=== PATIENT | female | born 1955 | race Caucasian/White ===

== ENCOUNTER → 2017-08-09 | Outpatient (CLI) | payer OTHER ==
[~2017-08-09] MED LIST: CIPR500 PO; ESTROGEN PATCH; HYDACE5 PO; LEVFLO500 PO; METR500 PO; NAPR550 PO; OXYACE5T PO; PROM25 PO; Percocet 5-3251 EACH PO; Zofran Odt4 MG SL
[2017-08-12 10:48] LABS: HPV Genotype 16 Not Detected (NOTDET); HPV Genotype 18 Not Detected (NOTDET); HPV High Risk Other Not Detected (NOTDET)
== END | disposition home or self-care (01) ==
LOC: OLS 13:19
PROVIDERS: Nurse Practitioner Women's Health
DX: Z12.4 Encounter for screening for malignant neoplasm of cervix (principal)
CPT/HCPCS: 87624; G0123

== ENCOUNTER → 2019-11-08 | Outpatient (CLI) | payer OTHER ==
[2019-11-08 11:51] LABS: BASOPHILS ABSOLUTE AUTO 0.08 K/mm3 (0.00-0.23); BASOPHILS PERCENT AUTO 1 % (0-2); EOSINOPHILS PERCENT AUTO 3 % (0-6); Hematocrit 47.4 % (33.0-51.0); Hemoglobin 16.1 g/dL (11.5-16.0); IMMATURE GRAN ABSOLUTE AUTO 0.03 K/mm3 (0.00-0.10); IMMATURE GRAN PERCENT AUTO 0 % (0-1); LYMPHOCYTES ABSOLUTE AUTO 1.54 K/mm3 (0.84-5.20); LYMPHOCYTES PERCENT AUTO 14 % (21-46); MONOCYTES ABSOLUTE AUTO 0.48 K/mm3 (0.16-1.47); MONOCYTES PERCENT AUTO 4 % (4-13); Mean Corpuscular HGB 32.3 pg (26.0-34.0); Mean Corpuscular Volume 95 fL (80-100); Mean Platelet Volume 9.6 fL (9.1-12.4); NEUTROPHILS ABSOLUTE AUTO 8.84 K/mm3 (1.96-9.15); NEUTROPHILS PERCENT AUTO 78 % (41-73); Platelet Count 276 K/mm3 (150-400); RDW Coefficient Variation 13.4 % (11.7-14.2); RDW Standard Deviation 46.7 fL (35.1-46.3); Red Blood Cell Count 4.99 M/mm3 (3.80-5.20); White Blood Cell Count 11.27 K/mm3 (4.00-11.30)
[2019-11-08 12:10] LABS: Alanine Aminotransfer (ALT/SGP 30 U/L (12-78); Albumin, Blood 4.3 g/dL (3.4-5.0); Albumin/Globulin Ratio 1.1 (0.8-1.8); Alk Phos 103 U/L (40-126); Anion Gap 12 mmol/L (6-16); Aspartate Aminotrans (AST/SGOT 25 U/L (12-37); Bilirubin, Total 0.2 mg/dL (0.1-1.0); Blood Urea Nitrogen 9 mg/dL (8-24); Bun/Creatinine Ratio 12.9 (12.0-20.0); CO2, Blood 26 mmol/L (21-32); Calcium, Blood 9.6 mg/dL (8.5-10.1); Chloride, Blood 105 mmol/L (98-108); Globulin, Blood 3.8 g/dL (2.2-4.0); Glomerular Filtration Rate >60 (60-); Glucose, Blood 114 mg/dL (70-99); Potassium, Blood 4.2 mmol/L (3.5-5.5); Sodium, Blood 143 mmol/L (136-145); Total Protein, Blood 8.1 g/dL (6.4-8.2)
== END | disposition home or self-care (01) ==
LOC: LAB EV 11:44 → LAB SHORT 11:44
PROVIDERS: General Practice
DX: R10.11 Right upper quadrant pain (principal)
CPT/HCPCS: 80053; 83690; 85025; 87086

== ENCOUNTER 2020-11-16 21:34 | Inpatient (IN) | payer OTHER ==
[~2020-11-16] VITALS: Ht 162.6 cm; Wt 54.2 kg
[2020-11-16] MEDS ORDERED: ASPI81CH PO (22:07)
[2020-11-16] MEDS ORDERED: BUDESONIDE EC3 M5 PO (22:07)
[2020-11-16] MEDS ORDERED: RALOXIFENE HCL PO (22:07)
[2020-11-16 23:47] LABS: BASOPHILS ABSOLUTE AUTO 0.09 K/mm3 (0.00-0.23); BASOPHILS PERCENT AUTO 1 % (0-2); LYMPHOCYTES ABSOLUTE AUTO 0.84 K/mm3 (0.84-5.20); LYMPHOCYTES PERCENT AUTO 4 % (21-46); MONOCYTES ABSOLUTE AUTO 1.15 K/mm3 (0.16-1.47); MONOCYTES PERCENT AUTO 6 % (4-13); Mean Corpuscular HGB 32.1 pg (26.0-34.0); Mean Corpuscular HGB Conc 34.9 g/dL (31.5-36.5); Mean Corpuscular Volume 92 fL (80-100); Mean Platelet Volume 9.5 fL (9.1-12.4); Platelet Count 262 K/mm3 (150-400); RDW Coefficient Variation 12.9 % (11.7-14.2); RDW Standard Deviation 43.8 fL (35.1-46.3); Red Blood Cell Count 4.68 M/mm3 (3.80-5.20); White Blood Cell Count 19.94 K/mm3 (4.00-11.30)
[2020-11-16 23:48] LABS: EOSINOPHILS PERCENT AUTO 0 % (0-6); IMMATURE GRAN ABSOLUTE AUTO 0.13 K/mm3 (0.00-0.10); IMMATURE GRAN PERCENT AUTO 1 % (0-1); NEUTROPHILS ABSOLUTE AUTO 17.73 K/mm3 (1.96-9.15); NEUTROPHILS PERCENT AUTO 89 % (41-73)
[2020-11-17 00:05] LABS: Albumin, Blood 2.8 g/dL (3.4-5.0); Albumin/Globulin Ratio 0.7 (0.8-1.8); Bilirubin, Total 0.8 mg/dL (0.1-1.0); Bun/Creatinine Ratio 31.9 (12.0-20.0); Calcium, Blood 8.9 mg/dL (8.5-10.1); Creatinine, Blood 1.13 mg/dL (0.40-1.00); Globulin, Blood 4.1 g/dL (2.2-4.0); Potassium, Blood 3.3 mmol/L (3.5-5.5); Total Protein, Blood 6.9 g/dL (6.4-8.2)
--- NOTE | 2020-11-17 03:57 | NUR ---
PT ARRIVED TO FLOOR FROM ER FOR APPY. PT A/O, VSS. PT REP ABD PAIN X3 DAYS W/N/V. ABD MILDLY DISTENDED, PT REP NEAR BASELINE, REP PAIN W/PALP, MORESO TO R SIDE OF ABD. PT REP PAIN CYN, DENIES N/V. PT ORIENTED TO ROOM/CALL LIGHT, AND NPO STATUS. IVF RUNNING PER ORDERS. WILL MONITOR AND TX PER ORDERS.
--- NOTE | 2020-11-17 04:08 | NUR ---
PT CAME TO SURGICAL FLOOR FROM THE ER. HAD CONSTIPATION FOR 3 DAYS AND WAS UNABLE TO URINATE. PT WAS ABLE TO URINATE 300 ML FOR ME. SHE ALSO HAD SOME NAUSEA AND VOMITING. CT SHOWED A PERFORATED APPENDIX. PT IS A 1 PPD SMOKER AND DENIES SOB. HX OF OVARIES AND TUBES REMOVAL.
[2020-11-17 04:56] LABS: SARS-Cov-2 (COVID-19) PCR, MMC NEGATIVE (NEGATIVE)
--- NOTE | 2020-11-17 05:41 | NUR ---
PT NEW ADMIT THIS SHIFT FOR APPY. PT VSS, PAIN MGD PER EMAR W/REP RELIEF. PT HAS BEEN NPO SINCE ARRIVING TO FLOOR; IVF CONT PER ORDERS. AWAITING SURGERY PLANNING.
[2020-11-17 11:13] LABS: International Normalized Ratio 0.95; Prothrombin Time Results 10.3 Sec (9.7-11.5)
--- NOTE | 2020-11-17 14:45 | NUR ---
RETURNED FROM CT URESIL DRAIN IN PLACE TO RLQ W/ ELIZABETH AMT AILYN KENDALL. IVF RESTARTED, PT DENIES INCREASE IN PAIN & HAS NO COMPLAINTS AT THIS TIME.
[2020-11-17 17:54] LABS: Hematocrit 39.8 % (33.0-51.0); Hemoglobin 13.7 g/dL (11.5-16.0); Mean Corpuscular HGB 32.1 pg (26.0-34.0); Mean Corpuscular HGB Conc 34.4 g/dL (31.5-36.5); Mean Corpuscular Volume 93 fL (80-100); Mean Platelet Volume 9.6 fL (9.1-12.4); Platelet Count 258 K/mm3 (150-400); RDW Coefficient Variation 13.1 % (11.7-14.2); RDW Standard Deviation 44.9 fL (35.1-46.3); Red Blood Cell Count 4.27 M/mm3 (3.80-5.20); White Blood Cell Count 18.88 K/mm3 (4.00-11.30)
[2020-11-17 18:13] LABS: BAND PERCENT MAN 23 % (0-8); BASOPHILS PERCENT MAN 0 % (0-2); EOSINOPHILS PERCENT MAN 0 % (0-6); LYMPHOCYTES ABSOLUTE MAN 1.13 K/mm3 (0.84-5.20); LYMPHOCYTES PERCENT MAN 6 % (21-46); MONOCYTES ABSOLUTE MAN 0.75 K/mm3 (0.16-1.47); MONOCYTES PERCENT MAN 4 % (4-13); NEUTROPHILS ABSOLUTE MAN 16.99 K/mm3 (1.96-9.15); SEG NEUTROPHILS PERCENT MAN 67 % (41-73); TOTAL CELLS COUNTED 100
[2020-11-17 18:15] LABS: Anion Gap 11 mmol/L (6-16); Blood Urea Nitrogen 25 mg/dL (8-24); Bun/Creatinine Ratio 27.3 (12.0-20.0); CO2, Blood 21 mmol/L (21-32); Calcium, Blood 8.8 mg/dL (8.5-10.1); Chloride, Blood 102 mmol/L (98-108); Creatinine, Blood 0.92 mg/dL (0.40-1.00); Glomerular Filtration Rate >60 (60-); Glucose, Blood 93 mg/dL (70-99); Magnesium, Blood 2.7 mg/dL (1.6-2.4); Phosphorus, Blood 2.2 mg/dL (2.5-4.9); Potassium, Blood 3.3 mmol/L (3.5-5.5); Sodium, Blood 134 mmol/L (136-145); Troponin I <0.015 ng/mL (0.000-0.040)
[2020-11-17 18:40] LABS: CHOL/HDL RATIO 3.6; Cholesterol 129 mg/dL (50-200); HDL Cholesterol 36 mg/dL (>39); LDL/HDL RATIO 1.8; Low Density Lipoprotein Chol 66 mg/dL (0-110); Triglycerides 136 mg/dL (30-160); Very Low Density Lipoprot Chol 27 mg/dL (6-32)
[2020-11-17 19:02] LABS: Free Thyroxine 1.38 ng/dL (0.70-1.60)
[2020-11-17 19:06] LABS: Thyroid Stimulating Hormone 2.37 uIU/mL (0.360-4.800)
--- NOTE | 2020-11-17 19:22 | NUR ---
TRANSFER TO PCU AT 1645, PT REPORTS FEELING INDIGESTION/PRESSURE, HAVING A SHARP HEADACHE, A FLUTTERING IN HER CHEST & NOT FEELING WELL. VITAL CHECK REVEALS HR FLUCTUATING FROM 80's TO 170's. UPON LISTENING TO HR & FEELING PULSES, IT WAS CLEARLY IRREGULAR. 1700- DISCUSSED NEW FINDINGS W/ DR CATHERINE. NEW ORDERS RECEIVED. 1708- EKG COMPLETE. AFIB W/ RVR IN 170'S. PT REPORTS NO CHANGE IN SYMPTOMS. 1715- DR CATHERINE CALLED. NEW ORDERS RECEIVED. 1730- HOSPITALIST CONSULT COMPLETED. NEW ORDERS RECEIVED. 1750- IV METOPROLOL GIVEN NOW THAT TELE IS ON. TELE REPORTS AFIB W/ RVR IN 180'S. DR DAVENPORT IN TELE ROOM DURING METOPROLOL PUSH. REPORTS MINIMAL RESPONSE. PT REPORTS FEELING LESS CHEST PRESSURE AND NO MORE FLUTTERING. TELE REPORTS AFIB W/ RVR IN 150'S. CHEST X-RAY & LAB DRAW COMPLETED. 1800- RESIDENT TO PT's ROOM FOR ASSESSMENT. 1830- HOSPITALIST TO PT's ROOM FOR ASSESSMENT. 1840- PCU TRANSFER ORDERS RECEIVED.
--- NOTE | 2020-11-17 20:03 | NUR ---
REPORT CALLED TO PERMASTONE APPLICATORCONCHA LARIOS
[2020-11-18 04:38] LABS: BASOPHILS ABSOLUTE AUTO 0.05 K/mm3 (0.00-0.23); BASOPHILS PERCENT AUTO 0 % (0-2); Hematocrit 34.6 % (33.0-51.0); Hemoglobin 11.6 g/dL (11.5-16.0); LYMPHOCYTES PERCENT AUTO 5 % (21-46); MONOCYTES PERCENT AUTO 8 % (4-13); Mean Corpuscular HGB 31.4 pg (26.0-34.0); Mean Corpuscular HGB Conc 33.5 g/dL (31.5-36.5); Mean Corpuscular Volume 94 fL (80-100); Mean Platelet Volume 9.9 fL (9.1-12.4); Platelet Count 234 K/mm3 (150-400); RDW Coefficient Variation 13.1 % (11.7-14.2); RDW Standard Deviation 45.1 fL (35.1-46.3); White Blood Cell Count 14.58 K/mm3 (4.00-11.30)
--- NOTE | 2020-11-18 04:38 | NUR ---
OVEN BAKER SUMMARY PT ARRIVED TO UNIT W A HR OF AFIB 150'S, CARDIZEM GTT STARTED WELL HEPARIN. PT HAS HAD SOFT BP'S THIS SHIFT W SBP LOW 88/60. PT CONVERTED TO NSR SHORTLY AFTER MIDNIGHT SO PROVIDER WAS CALLED AND PT STARTED ON LOPRESSOR. PT HAS MAINTAINED NSR IN 60-70'S FOR THE REST OF THE NIGHT. THE PT DID REQUIRE 4L O2 TO MAINTAIN O2 SATS >91% FOR FIRST HALF OF THE NIGHT BUT WAS ABLE TO RETURN TO RM AIR BY END OF THE SHIFT. PT HAS HAD SEVERAL LIQUID STOOLS THIS SHIFT W MINIMAL PELLET LIKE CONTENTS. DRAIN MANAGED TO MAINTAIN SUCTION AND IS PRODUCING SMALL AMOUNT OF GOODEN THICK DRAINAGE. NO FEVERS THIS SHIFT. PT HAS HAD MINIMAL URINE OUTPUT DESPITE LARGE AMOUNTS OF IV FLUIDS, BLADDER SCAN SHOWED <100ML URINE. VS STABLE AT THIS TIME, WCTM.
[2020-11-18 04:39] LABS: EOSINOPHILS ABSOLUTE AUTO 0.05 K/mm3 (0.00-0.68); EOSINOPHILS PERCENT AUTO 0 % (0-6); IMMATURE GRAN ABSOLUTE AUTO 0.06 K/mm3 (0.00-0.10); IMMATURE GRAN PERCENT AUTO 0 % (0-1); NEUTROPHILS ABSOLUTE AUTO 12.62 K/mm3 (1.96-9.15); NEUTROPHILS PERCENT AUTO 87 % (41-73)
[2020-11-18 05:07] LABS: Anion Gap 6 mmol/L (6-16); Blood Urea Nitrogen 20 mg/dL (8-24); Bun/Creatinine Ratio 25.5 (12.0-20.0); CO2, Blood 23 mmol/L (21-32); Calcium, Blood 7.6 mg/dL (8.5-10.1); Chloride, Blood 104 mmol/L (98-108); Creatinine, Blood 0.79 mg/dL (0.40-1.00); Glomerular Filtration Rate >60 (60-); Glucose, Blood 111 mg/dL (70-99); Potassium, Blood 3.7 mmol/L (3.5-5.5); Sodium, Blood 133 mmol/L (136-145)
--- NOTE | 2020-11-18 18:00 | NUR ---
END OF SHIFT SUMMARY: DIRECTOR OF PRODUCT MARKETING WORKING WITH SAILAJA FORRESTER RN. ASSUMED CARE FOR PATIENT AROUND 0700. PATIENT IS ALERT AND ORIENTED X4. PATIENT HAS BEEN SINUS RHYTHM. SHE HAS BEEN >93% ON 2L NC. SHE HAS A URESIL SLIM-CLOSE SUCTION DRAIN TO HER RIGHT LOWER QUADRANT THAT IS DRAINING GOODEN COLORED DRAINAGE. PATIENT HAS BEEN HAVING ABDOMINAL CRAMPING AND HAS BEEN MEDICATED PER EMAR ORDERS. PATIENT HAS BEEN GETTING UP TO USE THE RESTROOM WITH SBA. SHE DENIES ANY NEW SYMPTOMS OR COMPLAINTS DURING THIS SHIFT. SHE DENIES CHEST PAIN AND HEART PALPITATIONS. SHE IS CURRENTLY RESTING IN BED. BED IS IN THE LOWEST POSITION AND CALL LIGHT IS WITHIN REACH.
--- NOTE | 2020-11-19 04:02 | NUR ---
CHINCHILLA FARMER SUMMARY PT HAVING INCREASED SOB W CRACKLES IN BILAT BASES SO PROVIDER WAS CONTACTED AND FLUIDS WERE DC'D. PT HAS REMAINED IN NSR IN 70-80'S ALL SHIFT. PT AFEBRILE AND BP STABLE THIS SHIFT. SUCTION DRAIN CONTINUES TO PRODUCE SMALL AMOUNTS OF GOODEN THICK DISCHARGE. PT HAS HAD MULTPLE SMALL, GREEN, LIQUID BOWEL MOVMENTS THIS SHIFT. PT HAS BEEN AMBULATING WELL WITH MINIMAL PAIN. O2 SATS >92% ON 2L VIA NC, PT DOES DESATURATE TO MID 80'S WHENEVER OFF OF O2. PT DENIED ANY CP OR PALPATIONS THIS SHIFT. VSS, WCTM.
--- NOTE | 2020-11-19 10:44 | NUR ---
ADMIT: 11/17/20 DISCHARGE: DX: Abdominal Pain CC: [email or web address] LENO CALL: RESIDENCE: home CAREGIVER: Dank Gomez, Spouse / Partner, [phone] DX: microscopic colitis, hyperlipidemia, see list DME: none CCM: none HOME HEALTH: none SUMMARY: Admit: 11/17/20 11/19/20- per chart review, pt is still on IV antibotics and clear liquid diet. Pt had Afib with RVR last night. Dr. Araiza and Dr. De La Cruz are also seeing pt and providing care. Pt was cleared and moved to medical floor. -silvina
--- NOTE | 2020-11-19 16:31 | NUR ---
CARDIZEM DRIP INCREASED TO 20ML/HR PER DR. TAVERAS.
--- NOTE | 2020-11-19 17:10 | NUR ---
THIS RN CALLED DR TAVERAS TO CLARIFY ORDERS FOR AMIODARONE AND CARDIZEM IV. ORDERS RECEIVED TO DC IV AMIODARONE AND CONTINUE CARDIZEM DRIP AT [address] TAVERAS.
--- NOTE | 2020-11-19 17:14 | NUR ---
Echocardiogram completed.
--- NOTE | 2020-11-19 17:44 | NUR ---
SHIFT SUMMARY; ASSUMED CARE AT 0700, REPORT FROM CONCHA REYES. A/A/OX4 THROUGHOUT SHIFT. AT APPROX 0800 RHYTHYM CHANGE TO AFIB WITH RATE 120'S, MESSAGE LEFT FOR DR. MOODY. ORDERS GIVEN FOR LOPRESSOR IV PUSH BY DR. MOODY VIA PHONE TO CONCHA DANIEL. PO LOPRESSOR ORDER CHANGED. MEDICATED PER ORDERS. DENIES CHEST PAIN OR SOB. DR. STEINBERG TO BEDSIDE MID MORNING. REMAINS IN A FIB WITH RATE 100-120. SECOND DOSE LOPRESSOR GIVEN PER ORDERS. UP TO BEDSIDE COMMODE SEVERAL TIMES WITH LOOSE GREEN STOOL. URISEL IN PLACE DRAINIG BROWN LIQUID. DRESSING CLEAN DRY AND INTACT. CARDIOLOGY CONSULTED IN AFTERNOON FOR RATE CONTROL. CARDIZEM BOLUS, DRIP AND HEPARIN ORDERED BY DR. TAVERAS. MEDICATED PER ORDERS. CONVERTED TO SINUS RHYTHYM. CURRENT CARDIZEM DRIP AT 20ML/HR, WILL CONTINUE WITH CURRENT RATE PER DR. TAVERAS. REPOSITIONS SELF IN BED NEEDED. WILL CONTINUE TO TREAT AND MONITOR UNTIL CHANGE OF SHIFT.
--- NOTE | 2020-11-19 21:35 | NUR ---
Stopped dilTiazam gtt at 2115 per MD Rankin.
--- NOTE | 2020-11-20 07:59 | NUR ---
UPDATE PHARMACY NOTIFIED HEPARIN DOSE NOT ADJUSTED WITH LAST HEPARIN INFUSION DOSE ADJUSTMENT. LAB TO BE NOTIFIED AND ADJUSTMENTS TO BE MADE PER PHARMACIST.
[2020-11-20 08:11] LABS: BASOPHILS ABSOLUTE AUTO 0.07 K/mm3 (0.00-0.23); BASOPHILS PERCENT AUTO 0 % (0-2); EOSINOPHILS ABSOLUTE AUTO 0.25 K/mm3 (0.00-0.68); EOSINOPHILS PERCENT AUTO 1 % (0-6); Hematocrit 32.4 % (33.0-51.0); Hemoglobin 11.1 g/dL (11.5-16.0); IMMATURE GRAN ABSOLUTE AUTO 0.27 K/mm3 (0.00-0.10); IMMATURE GRAN PERCENT AUTO 2 % (0-1); LYMPHOCYTES ABSOLUTE AUTO 1.52 K/mm3 (0.84-5.20); LYMPHOCYTES PERCENT AUTO 9 % (21-46); MONOCYTES ABSOLUTE AUTO 1.47 K/mm3 (0.16-1.47); MONOCYTES PERCENT AUTO 8 % (4-13); Mean Corpuscular HGB 32.4 pg (26.0-34.0); Mean Corpuscular HGB Conc 34.3 g/dL (31.5-36.5); Mean Corpuscular Volume 95 fL (80-100); Mean Platelet Volume 9.3 fL (9.1-12.4); NEUTROPHILS ABSOLUTE AUTO 14.27 K/mm3 (1.96-9.15); NEUTROPHILS PERCENT AUTO 80 % (41-73); Platelet Count 301 K/mm3 (150-400); RDW Coefficient Variation 13.4 % (11.7-14.2); RDW Standard Deviation 46.3 fL (35.1-46.3); Red Blood Cell Count 3.43 M/mm3 (3.80-5.20); White Blood Cell Count 17.85 K/mm3 (4.00-11.30)
[2020-11-20 08:25] LABS: Anion Gap 11 mmol/L (6-16); Blood Urea Nitrogen 10 mg/dL (8-24); CO2, Blood 21 mmol/L (21-32); Calcium, Blood 8.1 mg/dL (8.5-10.1); Chloride, Blood 105 mmol/L (98-108); Creatinine, Blood 0.63 mg/dL (0.40-1.00); Glomerular Filtration Rate >60 (60-); Glucose, Blood 69 mg/dL (70-99); Potassium, Blood 3.3 mmol/L (3.5-5.5); Sodium, Blood 137 mmol/L (136-145)
--- NOTE | 2020-11-20 11:31 | NUR ---
UPDATE CARDIOLOGY AT BEDSIDE. ORDERS FOR PROCEDURAL MEDICATIONS ORDERED PER PHYSICIAN. ORDERS PROVIDED D/T PT LOW BLOOD SUGAR AND NPO STATE. SEE EMAR. PT NOT SYMPTOMATIC AT THIS TIME. EKG DONE PRIOR TO SOTALOL ADMINISTRATION D/T NO EKG DONE DURING NOC. PROFESSIONAL BUILDER CONFIRMED EKG STABLE. SOTALOL GIVEN THIS AM. WILL CONTINUE TO MONITOR .
--- NOTE | 2020-11-20 18:07 | NUR ---
SHIFT SUMMARY PT ALERT AND ORIENTED X 4. HR STABLE. BP STABLE. NO CP OR PRESSURE REPORTED. ACCORIDON DRAIN IN PLACE. SITE WNL. PT SBA TO COMMODE. OXYGEN SATURATION MAINTAINED ABOVE 92% ON 3L OF OXYGEN VIA NC. CALLI DONE AT BEDSIDE THIS AFTERNOON. SEE HC FLOW SHEET AND EMAR. PT TOLERATED WELL. VS REMAINED STABLE T/O PROCEDURE. CONSENT FORM SIGNED PRIOR TO START OF PROCEDURE. TESTING AND REGULATING TECHNICIANERIC RN, FURNITURE SALES ASSOCIATE AND SENIOR SECURITY ENGINEER AT BEDSIDE FOR PROCEDURE. MEDICATIONS DOCUMENTED IN [facility] FLOW SHEET, SEE CHART. EKG DONE THIS AM. WILL CONINUE TO MONITOR UNTIL REPORT GIVEN TO NIGHTSHIFT RN.
--- NOTE | 2020-11-20 18:45 | NUR ---
Update 11/20/20: Per chart review this AM with Dr. Bangura, pt. will likely remain hospitalized throughout the weekend. No discharge plan in place at this time.
--- NOTE | 2020-11-21 06:29 | NUR ---
PATIENT IS ALERT AND ORIENTATED, ABLE TO MAKE NEEDS KNOWN, HAD MULTIPLE BEDDING CHANGES AND BED BATHS R/T INCONTINENCE OF GREEN LIQUID STOOLS, NOTED EXCORIATION AND REDNESS OF BUTTOCKS FOR INCONTINECE. DISCUSS WITH PATIENT RECTAL TUBE, PATIENT AGREED, REVIEWED WITH INCOME TAX CONSULTANT THAT RECTAL TUBE WOULD BE BENEFICAL, INSERTED AROUND 0300 THIS MORNING, PATENT WITH GOOD OUTPUT. LEAKAGE NOTED AROUND TUBE ONE TIME PATIENT WAS PUSHING OUT FECES THROUGH TUBE, EDUCATION WAS GIVEN, PATIENT WAS CLEANED AND IS COMFORTABLY RESTING IN BED.
[2020-11-21 09:01] LABS: BASOPHILS ABSOLUTE AUTO 0.14 K/mm3 (0.00-0.23); BASOPHILS PERCENT AUTO 1 % (0-2); EOSINOPHILS ABSOLUTE AUTO 0.34 K/mm3 (0.00-0.68); EOSINOPHILS PERCENT AUTO 2 % (0-6); Hematocrit 34.6 % (33.0-51.0); Hemoglobin 11.5 g/dL (11.5-16.0); IMMATURE GRAN ABSOLUTE AUTO 0.63 K/mm3 (0.00-0.10); IMMATURE GRAN PERCENT AUTO 3 % (0-1); LYMPHOCYTES ABSOLUTE AUTO 2.14 K/mm3 (0.84-5.20); LYMPHOCYTES PERCENT AUTO 11 % (21-46); MONOCYTES ABSOLUTE AUTO 1.85 K/mm3 (0.16-1.47); MONOCYTES PERCENT AUTO 9 % (4-13); Mean Corpuscular HGB 31.9 pg (26.0-34.0); Mean Corpuscular HGB Conc 33.2 g/dL (31.5-36.5); Mean Corpuscular Volume 96 fL (80-100); Mean Platelet Volume 9.8 fL (9.1-12.4); NEUTROPHILS ABSOLUTE AUTO 14.57 K/mm3 (1.96-9.15); NEUTROPHILS PERCENT AUTO 74 % (41-73); Platelet Count 375 K/mm3 (150-400); RDW Coefficient Variation 13.4 % (11.7-14.2); RDW Standard Deviation 47.9 fL (35.1-46.3); White Blood Cell Count 19.67 K/mm3 (4.00-11.30)
[2020-11-21 09:09] LABS: Anion Gap 11 mmol/L (6-16); Blood Urea Nitrogen 7 mg/dL (8-24); Bun/Creatinine Ratio 10.6 (12.0-20.0); CO2, Blood 20 mmol/L (21-32); Calcium, Blood 8.3 mg/dL (8.5-10.1); Chloride, Blood 109 mmol/L (98-108); Creatinine, Blood 0.66 mg/dL (0.40-1.00); Glomerular Filtration Rate >60 (60-); Glucose, Blood 94 mg/dL (70-99); Potassium, Blood 3.1 mmol/L (3.5-5.5); Sodium, Blood 140 mmol/L (136-145)
--- NOTE | 2020-11-21 09:12 | NUR ---
UPDATE PHYSICIAN NOTIFIED OF PT'S FREQUENT LOOSE STOOL. ORDERS FOR STOOL SAMPLE TO BE PUT IN BY PHYSICIAN. PROBIOTIC SUPPLEMENT TO BE PUT IN BY PHYSICIAN. WILL CONTINUE TO MONITOR.
[2020-11-21 12:34] LABS: C DIFFICILE DNA NEGATIVE (Negative)
--- NOTE | 2020-11-21 13:55 | NUR ---
UPDATE PHYSICIAN NOTIFIED OF PT'S LOW K+ LEVELS. ORDERS PROVIDED PER PHYSICIAN.
--- NOTE | 2020-11-21 16:15 | NUR ---
UPDATE PT REQUESTING TO ADVANCE TO FULL LIQUID DIET. INSTRUCTED BY PHYSICIAN TO ADVANCE PT'S DIET TO FULL LIQUID SLOWLY. SEE EHR.
--- NOTE | 2020-11-21 17:40 | NUR ---
SHIFT SUMMARY PT ALERT AND ORIENTED X 4. HR STABLE. BP STABLE. NO CHEST PAIN. PT ABLE TO TURN SELF IN BED NEEDED. RECTAL TUBE IN PLACE, DRAINING LIQUID BROWN STOOL. PT SBA TO COMMODE. HOSPITALIST AND SURGEON AT BEDSIDE WITH PT THIS AFTERNOON. ORDERS PROVIDED, SEE EHR. PT PROVIDED WITH INCENTIVE SPIROMETER AT BEDSIDE. PT REPORTS PAIN IN ABD, MEDICATED PER EMAR. PT REPORTS RELIEF. OXYGEN SATURATION MAINTAINED ABOVE 92% ON RA-2.5 L OF OXYGEN VIA NC. PHYSICIAN NOTIFIED OF PT'S LOW K+ LEVEL DURING SHIFT, SEE NOTE AND EHR. PT ABLE TO ADVACE DIET TO FULL LIQUID PER SURGEON. WILL CONTINUE TO MONITOR UNTIL REPORT GIVEN TO NIGHTSHIFT RN.
--- NOTE | 2020-11-22 01:04 | NUR ---
PATIENT IS ALERT AND ORIENTATED, ABLE TO MAKE NEEDS KNOWN, THIS LN TOOK OVER CARE AT 1845, REMOVED LAC, RAC IV(S), NEW INSERTED POWERGLIDE PALOMO IS INFUSING WITH NO S/SX OF INFLITRATION, RECTAL TUBE WAS DEFLATED AND ASSESS WITH NO S/SX OF ULCERATION, LEAKING NOTED R/T PATIENT IS WEARING A BRIEF AND SITTING ON TUBE. EDUCATION WAS PROVIDED TO GRAB HOOKER AND PATIENT. PATIENT HAD A BATH AND COMPLETE BED CHANGE, COMPLAINS OF EXTREME PAIN STOMACH ON FIRE, DILAUDID 1MG IVP GIVEN PATIENT REPORTS HELPS AND IS TOLERABLE. HEPARIN GTT IS CURRENTLY RUNNING AT 24U/KG/HR AND MONITORING LABS. WILL CONTINUE TO MONITOR PATIENT.
[2020-11-22 05:10] LABS: Hematocrit 32.4 % (33.0-51.0); Mean Corpuscular HGB 31.6 pg (26.0-34.0); Mean Corpuscular Volume 93 fL (80-100); Mean Platelet Volume 9.1 fL (9.1-12.4); NRBC ABSOLUTE 0.02 K/mm3 (0.00-0.02); NRBC Auto 0.1 /100 WBC (0.0-0.2); Platelet Count 436 K/mm3 (150-400); RDW Coefficient Variation 13.3 % (11.7-14.2); RDW Standard Deviation 45.6 fL (35.1-46.3); Red Blood Cell Count 3.48 M/mm3 (3.80-5.20)
[2020-11-22 05:26] LABS: Alanine Aminotransfer (ALT/SGP 16 U/L (12-78); Albumin, Blood 1.8 g/dL (3.4-5.0); Albumin/Globulin Ratio 0.4 (0.8-1.8); Alk Phos 77 U/L (50-136); Anion Gap 9 mmol/L (6-16); Aspartate Aminotrans (AST/SGOT 16 U/L (12-37); Bilirubin, Total 0.4 mg/dL (0.1-1.0); Blood Urea Nitrogen 5 mg/dL (8-24); Bun/Creatinine Ratio 6.9 (12.0-20.0); CO2, Blood 22 mmol/L (21-32); Calcium, Blood 8.1 mg/dL (8.5-10.1); Chloride, Blood 107 mmol/L (98-108); Creatinine, Blood 0.72 mg/dL (0.40-1.00); Glomerular Filtration Rate >60 (60-); Glucose, Blood 93 mg/dL (70-99); Potassium, Blood 3.3 mmol/L (3.5-5.5); Sodium, Blood 138 mmol/L (136-145); Total Protein, Blood 5.8 g/dL (6.4-8.2)
[2020-11-22 05:29] LABS: BAND PERCENT MAN 8 % (0-8); BASOPHILS PERCENT MAN 0 % (0-2); EOSINOPHILS ABSOLUTE MAN 0.62 K/mm3 (0.00-0.68); EOSINOPHILS PERCENT MAN 3 % (0-6); LYMPHOCYTES ABSOLUTE MAN 1.24 K/mm3 (0.84-5.20); LYMPHOCYTES PERCENT MAN 6 % (21-46); MONOCYTES ABSOLUTE MAN 0.62 K/mm3 (0.16-1.47); MONOCYTES PERCENT MAN 3 % (4-13); MYELOCYTE PERCENT MAN 1 % (0-0); NEUTROPHILS ABSOLUTE MAN 18.09 K/mm3 (1.96-9.15); SEG NEUTROPHILS PERCENT MAN 79 % (41-73); TOTAL CELLS COUNTED 100
--- NOTE | 2020-11-22 17:43 | NUR ---
SHIFT SUMMARY/UPDATE PT ALERT AND ORIENTED X 4. HR STABLE. BP STABLE. NO CP OR PRESSURE. OXYGEN SATURATION MAINTAINED ABOVE 92% ON RA. DR. RODAS AT BEDSIDE TO SEE PT THIS AFTERNOON. PLAN FOR PT TO HAVE PROCEDURE IN AM FOR DRAIN PLACEMENT. PT TO BE NPO AT MIDNIGHT FOR PROCEUDRE. PER DR. RODAS HOLD HEPARIN GTT AT 0400. NURSE NOTIFY PUT IN. WILL INFORM NIGHTSHIFT. ACCORDIAN DRAIN TO LLQ DRAINING WELL. SITE WNL. RECTAL TUBE IN PLACE FOR LIQUID STOOL. PT SBA TO COMMODE. PT BEGAN TO HAVE HIVES THIS EVENING AFTER IV K+ ADMINISTRATION. PHYSICIAN NOTIFIED. ORDERS PROVIDED FOR BENADRYL, PO POTASSIUM AND TO D/C IV POTASSIUM.PT REPORTS PAIN IN LOWER ABD. MEDICATED PER EMAR. PT REPORTS RELIEF OF PAIN. SEE EMAR. WILL CONTINUE TO MONITOR UNTIL REPORT GIVEN TO NIGHTSHIFT RN.
[2020-11-22 21:03] LABS: Vancomycin, Random 2.5 ug/mL
--- NOTE | 2020-11-23 06:37 | NUR ---
SHIFT SUMMARY PT A&O X4. VSS. MONITOR SHOWS SR, HR 60's-80's. SPO2 > 90% ON RA. PT C/O LOWER ABD PAIN INTERMITTENTLY T/O SHIFT. PT MEDICATED W/ PRN IV DILAUDID PER PT REQUEST/EMAR X2 THIS SHIFT W/ IMPROVEMENT. RLQ URESIL DRAIN PATENT & DRAINING BROWN OUTPUT. RECTAL TUBE IN PLACE DRAINING LIQUID BLACK/GREEN OUTPUT. PT 1 PERSON ASSIST UP TO BSC FOR URINATION. D5 W/ 1/2NS KCL GTT INFUSING PER ORDERS. HEPARIN GTT OFF @ 0400 PER ORDERS. PT NPO SINCE MIDNIGHT. WILL CONTINUE TO MONITOR & PROVIDE CARE UNTIL REPORT OFF TO DAY SHIFT RN.
[2020-11-23 08:56] LABS: BASOPHILS ABSOLUTE AUTO 0.15 K/mm3 (0.00-0.23); BASOPHILS PERCENT AUTO 1 % (0-2); EOSINOPHILS ABSOLUTE AUTO 0.19 K/mm3 (0.00-0.68); EOSINOPHILS PERCENT AUTO 1 % (0-6); Hematocrit 31.9 % (33.0-51.0); IMMATURE GRAN ABSOLUTE AUTO 0.78 K/mm3 (0.00-0.10); IMMATURE GRAN PERCENT AUTO 3 % (0-1); LYMPHOCYTES ABSOLUTE AUTO 1.44 K/mm3 (0.84-5.20); LYMPHOCYTES PERCENT AUTO 6 % (21-46); MONOCYTES ABSOLUTE AUTO 1.41 K/mm3 (0.16-1.47); MONOCYTES PERCENT AUTO 6 % (4-13); Mean Corpuscular HGB 32.1 pg (26.0-34.0); Mean Corpuscular HGB Conc 34.5 g/dL (31.5-36.5); Mean Corpuscular Volume 93 fL (80-100); Mean Platelet Volume 8.9 fL (9.1-12.4); NEUTROPHILS ABSOLUTE AUTO 19.46 K/mm3 (1.96-9.15); NEUTROPHILS PERCENT AUTO 83 % (41-73); Platelet Count 451 K/mm3 (150-400); RDW Coefficient Variation 13.4 % (11.7-14.2); RDW Standard Deviation 45.9 fL (35.1-46.3); Red Blood Cell Count 3.43 M/mm3 (3.80-5.20); White Blood Cell Count 23.43 K/mm3 (4.00-11.30)
[2020-11-23 09:17] LABS: Calcium, Blood 7.9 mg/dL (8.5-10.1); Creatinine, Blood 1.2 mg/dL (0.40-1.00); Potassium, Blood 3.4 mmol/L (3.5-5.5)
--- NOTE | 2020-11-23 16:18 | NUR ---
HEPARIN DC'D PER ORDERS.
--- NOTE | 2020-11-23 17:41 | NUR ---
SHIFT SUMMARY; ASSUMED CARE AT 0700, REPORT FROM WILLARD. A/A/OX4 DURING SHIFT, UP TO BEDSIDE COMMODE WITH STANDBY ASSIST NEEDED. REPOSITIONS SELF IN BED. URISEL PLACED TO RIGHT FLANK AREA TODAY. DRESSING CLEAN AND DRY. EXISTING URISEL TO RIGHT ABD IN PLACE DRAINING BROWN LIQUID. RECTAL TUBE IN PLACE DRAINING GREEN LIQUID STOOL. HEPARIN DC'D TODAY BY DR. ENCARNACION, MEDICATED NEEDED DURING SHIFT. DIET INCREASED TO REG DIET TOLERATED. VSS, WILL CONTINUE TO MONITOR AND TREAT UNTIL CHANGE OF SHIFT.
--- NOTE | 2020-11-24 02:59 | NUR ---
SHIFT SUMMARY: APPENDECTOMY PATIENT IS ALERT AND ORIENTED X4 WHILE AWAKE. SHE HAS BEEN INTERMITTENTLY SLEEPING THROUGH THE NIGHT BUT IS EASILY AROUSABLE IF ASLEEP. VS ARE WNL AND IS ON RA. PAIN IS MANAGED WITH 1MG DILAUDID IV EVERY 4 HOURS. ONE URICEL ON HER ABD DRAINS BROWN OUTPUT. THE SECOND URICEL ON HER LOWER BACK HAS A SMALL AMOUNT OF YELLOW OUTPUT. BOTH ACCORDIONS ON THE URICELS ARE COMPRESSED. HER RECTAL TUBE HAS DARK BROWN LIQUID OUTPUT AND IS DRAINING BY GRAVITY. CALLS APPROPRIATELY. CALL LIGHT WITHIN REACH. SHE IS TOLERATING SMALL AMOUNTS OF PO SOLID INTAKE. SHE IS VOIDING AND PASSING GAS. PATIENT IS ALSO AUGUSTINE. THE PLAN IS TO CONTINUE IV FLUIDS AND ABX.
[2020-11-24 04:15] LABS: Hematocrit 32.2 % (33.0-51.0); Mean Corpuscular HGB 31.9 pg (26.0-34.0); Mean Corpuscular HGB Conc 34.2 g/dL (31.5-36.5); Mean Corpuscular Volume 93 fL (80-100); Mean Platelet Volume 9.1 fL (9.1-12.4); Platelet Count 476 K/mm3 (150-400); RDW Coefficient Variation 13.8 % (11.7-14.2); RDW Standard Deviation 46.7 fL (35.1-46.3); Red Blood Cell Count 3.45 M/mm3 (3.80-5.20); White Blood Cell Count 28.21 K/mm3 (4.00-11.30)
[2020-11-24 04:33] LABS: BAND PERCENT MAN 8 % (0-8); BASOPHILS PERCENT MAN 0 % (0-2); EOSINOPHILS PERCENT MAN 0 % (0-6); LYMPHOCYTES ABSOLUTE MAN 1.41 K/mm3 (0.84-5.20); LYMPHOCYTES PERCENT MAN 5 % (21-46); METAMYELOCYTE ABSOLUTE MAN 0.56 K/mm3 (0.00-0.00); METAMYELOCYTE PERCENT MAN 2 % (0-0); MONOCYTES ABSOLUTE MAN 0.84 K/mm3 (0.16-1.47); MONOCYTES PERCENT MAN 3 % (4-13); NEUTROPHILS ABSOLUTE MAN 25.38 K/mm3 (1.96-9.15); SEG NEUTROPHILS PERCENT MAN 82 % (41-73); TOTAL CELLS COUNTED 100
[2020-11-24 04:34] LABS: Albumin, Blood 1.9 g/dL (3.4-5.0); Albumin/Globulin Ratio 0.5 (0.8-1.8); Bilirubin, Total 0.3 mg/dL (0.1-1.0); Bun/Creatinine Ratio 4.5 (12.0-20.0); Calcium, Blood 8.3 mg/dL (8.5-10.1); Creatinine, Blood 2.01 mg/dL (0.40-1.00); Globulin, Blood 4.1 g/dL (2.2-4.0); Magnesium, Blood 1.9 mg/dL (1.6-2.4); Potassium, Blood 3.9 mmol/L (3.5-5.5)
--- NOTE | 2020-11-24 07:24 | NUR ---
Bedside report received from CONCHA Aguilera. The pt states that her pain level is 4/10, tolerable. Both drains assessed, noted insertion sites are WNL. Ale reports minimal drainage from both of them overnight. Pt is requesting rectal tube removal.
[2020-11-24 09:29] LABS: Vancomycin, Trough 33.7 ug/mL (5.0-10.0)
--- NOTE | 2020-11-24 10:22 | NUR ---
Pt is requesting a shower. IVs and Drain sites were covered with plastic and secured with tape to prevent dislodgement of the adhesive dressings. Pt reports that she has had 3 loose small bowel movements this morning, but the Dilaudid has helped her abdominal pain at the surgical site and also slows down the diarrhea. She would like to restart her home med which treats her microscopic colitis.
--- NOTE | 2020-11-24 11:20 | NUR ---
Pt completed showering, noted a little short of breath after getting back into bed, but several minutes later she is sitting up in bed, talking without discernable effort on the telephone. IV fluids restarted, and IV zosyn also infusing through different IV line.
--- NOTE | 2020-11-24 13:46 | NUR ---
Pt states that she has still not seen Dr. Garay yet today.
--- NOTE | 2020-11-24 13:55 | NUR ---
Pt c/o feeling like her abdomen is "on fire". She would like to restart on her budesonide for the micro colitis.
[2020-11-25 03:55] LABS: BASOPHILS ABSOLUTE AUTO 0.09 K/mm3 (0.00-0.23); BASOPHILS PERCENT AUTO 0 % (0-2); EOSINOPHILS ABSOLUTE AUTO 0.28 K/mm3 (0.00-0.68); EOSINOPHILS PERCENT AUTO 1 % (0-6); Hematocrit 30.4 % (33.0-51.0); Hemoglobin 10.2 g/dL (11.5-16.0); IMMATURE GRAN ABSOLUTE AUTO 0.43 K/mm3 (0.00-0.10); IMMATURE GRAN PERCENT AUTO 2 % (0-1); LYMPHOCYTES ABSOLUTE AUTO 1.43 K/mm3 (0.84-5.20); LYMPHOCYTES PERCENT AUTO 5 % (21-46); MONOCYTES ABSOLUTE AUTO 1.47 K/mm3 (0.16-1.47); MONOCYTES PERCENT AUTO 6 % (4-13); Mean Corpuscular HGB 31.7 pg (26.0-34.0); Mean Corpuscular HGB Conc 33.6 g/dL (31.5-36.5); Mean Corpuscular Volume 94 fL (80-100); NEUTROPHILS ABSOLUTE AUTO 22.84 K/mm3 (1.96-9.15); NEUTROPHILS PERCENT AUTO 86 % (41-73); Platelet Count 458 K/mm3 (150-400); RDW Coefficient Variation 13.7 % (11.7-14.2); RDW Standard Deviation 47.8 fL (35.1-46.3); Red Blood Cell Count 3.22 M/mm3 (3.80-5.20); White Blood Cell Count 26.54 K/mm3 (4.00-11.30)
[2020-11-25 04:17] LABS: Albumin, Blood 1.8 g/dL (3.4-5.0); Albumin/Globulin Ratio 0.4 (0.8-1.8); Bilirubin, Total 0.2 mg/dL (0.1-1.0); Bun/Creatinine Ratio 3.6 (12.0-20.0); Calcium, Blood 8.1 mg/dL (8.5-10.1); Creatinine, Blood 2.2 mg/dL (0.40-1.00); Globulin, Blood 4.1 g/dL (2.2-4.0); Total Protein, Blood 5.9 g/dL (6.4-8.2)
--- NOTE | 2020-11-25 05:07 | NUR ---
shift summary pt rested minimally through night. alert and oriented - able to make needs known. cooperative with plan of care. sats were >90% on room air, but around 0500, sats at high 80%'s, likely related to pain - 2lnc placed on pt at that time with sats improving to mid 90%'s. toilets self to bsc - voiding 6x, with loose bm 6x as well per patient. both abdominal and perirectal drains have minimal/scant output - unmeasureable. drain sites are c/d/i. pain consistently up to 6-8, wishing to maintain pain regimen q3 hours through night. vss. call light within reach, bed in lowest position. will continue to monitor.
--- NOTE | 2020-11-25 08:08 | NUR ---
pt states her pain is 4/10, and that she is nauseated from the smell of the food tray being brought in. Food removed from the room and pt states she feels better. She is requesting full/clear liquids only . Vital signs stable. spo2 is only 91% at rest on room air. Noc shift states that the pt was hypoxic and dyspneic with activity last night. Pt also states that using the oxygen while she is getting up to use the bedside commode is "amazing" because it helps her so much. Blood cultures are being done right now.
--- NOTE | 2020-11-25 13:54 | NUR ---
Continues to have dyspnea with exertion, and is using oxygen for transfers and she states that it makes her feel better when she is moving around. States she had asthma as a child. Also having nausea, unable to eat without her 'stomach churning'. Also having liquid green stools, which she says she has when she has a colitis flare up.
--- NOTE | 2020-11-25 14:02 | NUR ---
Call to Dr. Garay regarding pt's nausea today, and declining respiratory status.
--- NOTE | 2020-11-25 15:39 | NUR ---
11/25/20- per chart review, pt is on IV antibiotics for abdominal abscess. Imagaing show potential endocarditis of mitral, aortic and tricuspid valves. Dr. Garay is going to consult infectious disease. -silvina
--- NOTE | 2020-11-25 17:04 | NUR ---
Pt states she is having a lot of urine output. States is now urinating more often than she is having bowel movements. Bowel movements today continue to be liquid green. She continues to have a dry cough, dyspnea with minimal exertion, and needing 2 l/min of oxygen for getting up to bedside commode. also c/o nausea and was given zofran at this time. States she is not quite ready to have pain medication. Her pain today has been better than yesterday, possibly because the drains have been removed, she thinks.
[2020-11-26 03:56] LABS: BASOPHILS PERCENT AUTO 0 % (0-2); EOSINOPHILS ABSOLUTE AUTO 0.36 K/mm3 (0.00-0.68); EOSINOPHILS PERCENT AUTO 1 % (0-6); Hematocrit 33.2 % (33.0-51.0); IMMATURE GRAN ABSOLUTE AUTO 0.37 K/mm3 (0.00-0.10); IMMATURE GRAN PERCENT AUTO 1 % (0-1); LYMPHOCYTES ABSOLUTE AUTO 1.33 K/mm3 (0.84-5.20); LYMPHOCYTES PERCENT AUTO 5 % (21-46); MONOCYTES ABSOLUTE AUTO 1.37 K/mm3 (0.16-1.47); MONOCYTES PERCENT AUTO 5 % (4-13); Mean Corpuscular HGB 31.5 pg (26.0-34.0); Mean Corpuscular HGB Conc 33.1 g/dL (31.5-36.5); Mean Corpuscular Volume 95 fL (80-100); Mean Platelet Volume 9.2 fL (9.1-12.4); NEUTROPHILS ABSOLUTE AUTO 23.09 K/mm3 (1.96-9.15); NEUTROPHILS PERCENT AUTO 87 % (41-73); Platelet Count 537 K/mm3 (150-400); RDW Coefficient Variation 13.8 % (11.7-14.2); RDW Standard Deviation 48.5 fL (35.1-46.3); Red Blood Cell Count 3.49 M/mm3 (3.80-5.20); White Blood Cell Count 26.62 K/mm3 (4.00-11.30)
[2020-11-26 04:15] LABS: Albumin, Blood 1.9 g/dL (3.4-5.0); Albumin/Globulin Ratio 0.4 (0.8-1.8); Bilirubin, Total 0.2 mg/dL (0.1-1.0); Bun/Creatinine Ratio 7.6 (12.0-20.0); Calcium, Blood 8.3 mg/dL (8.5-10.1); Creatinine, Blood 2.24 mg/dL (0.40-1.00); Globulin, Blood 4.5 g/dL (2.2-4.0); Potassium, Blood 4.3 mmol/L (3.5-5.5); Total Protein, Blood 6.4 g/dL (6.4-8.2)
--- NOTE | 2020-11-26 05:54 | NUR ---
shift summary pt rested some throughout night. alert and oriented, able to make needs known. cooperative with plan of care. sats >90% on 2lnc, pt resp status did seem to be better compared to night before. pt states she is feeling a lot better. tele rate 70's and then bounces up to 140's out of nowhere. ekg, placed in chart, pt asymptomatic. pain better controlled through night. zofran given x1. independent to bedside commode - frequent uop and bm's x6, very liquid bm's. call light within reach, bed in lowest position. iwll continue to monitor.
--- NOTE | 2020-11-26 07:22 | NUR ---
Dr Garay here to see the patient. Bedside report received from Amelie Jacob RN. Pt states that she is feeling a less pain, breathing better, but still have green bile diarrhea.
--- NOTE | 2020-11-26 07:58 | NUR ---
Complete abdominal ultrasound done at this time. pt no longer NPO
[2020-11-26 07:59] LABS: Alanine Aminotransfer (ALT/SGP 21 U/L (12-78); Albumin/Globulin Ratio 0.4 (0.8-1.8); Alk Phos 88 U/L (50-136); Aspartate Aminotrans (AST/SGOT 21 U/L (12-37); Bilirubin, Direct <0.1 mg/dL (0.0-0.3); Bilirubin, Indirect Unable to Calculate mg/dL (0.1-0.7); Bilirubin, Total 0.2 mg/dL (0.1-1.0); Globulin, Blood 4.6 g/dL (2.2-4.0); Total Protein, Blood 6.6 g/dL (6.4-8.2)
--- NOTE | 2020-11-26 13:36 | NUR ---
11/26/20- PER CHART REVIEW WITH DR. DUNCAN. NO PLAN FOR D/C AT THIS TIME. MEET WITH PT AND SHE REPORTS THAT SHE WAS VERY INDEPENDENT PRIOR TO COMING INTO THE HOSPITAL. SHE HAD NO CAREGIVERS AND NO HOME HEALTH. PT DOES NOT LIVE ALONE, SHE LIVES WITH HER SPOUSE IN A SINGLE STORY DWELLING. HER HOME DOES HAVE WORKING UTILITIES. SHE REPORTS THAT THERE ARE A COUPLE OF STAIRS TO GET INTO THE HOME AND SHE HAS NO CONCERNS GOING UP OR DOWN THEM. PT STATES THAT HER WILL BE ABLE TO TAKE HER HOME AND BUNDLE WRAPPER HER MEDICATIONS. THEY USE [facility] ON FLOOD. SHE HAS NO POA, PCP IS GORDON SANDOVAL, AND NEXT OF KIN IS HER . PT STATES THAT SHE DOES NOT NEED AND DME BUT DOES HAVE CANES IN HER HOME FROM HER PARENTS IF SHE NEEDS SOMETHING. PT IS ABLE TO MANAGE HER OWN MEDICATIONS AND HER IS ABLE TO DO THE HOUSEKEEPING AND COOKING. HER ONLY CONCERN ABOUT GOING HOME IS THAT SHE MAY NOT BE ABLE TO MAKE IT TO THE BATHROOM QUICKLY. SHE WILL LET US KNOW IF SHE NEEDS A BEDSIDE COMMODE. REVIEWED LENO LETTER AND PT ACKNOWLEDGED UNDERSTANDING. -ALESSANDRA
--- NOTE | 2020-11-26 17:41 | NUR ---
Ameena states that today her breathing has been better, and her pain better controlled. She states that she is having far fewer bowel movments than yesterday; however, she admits that she has had over 12 movements today, and they are clear liquid green and we are finding whole undisolved potassium tablets in it. The other morning medications were crushed before being given to promote better absorption. She has no appetite. She has been taking clear liquids only today, water and sprite/genie caron. States that her stomach churns when she tried to eat anything, or even at the smell of the meal trays. She has requested pain medication (dilaudid 1 mg IV) about every 3 hours, and earlier today she was also requesting zofran for nausea. Activity level has simply been up to the bedside commode or resting in bed. Voiding also, a large volume, after receiving IV lasix this afternoon.
--- NOTE | 2020-11-27 02:23 | NUR ---
1950: PT IS A&O X4, RESTING IN BED. VSS. SATING ABOVE 92% ON 1LPM O2 VIA NC. NO C/O CHEST PAIN, PT STATES SHE DOES GET SOB WHEN AMBULATING TO BEDSIDE COMMODE. CONNECTED TO TELEMETRY, SINUS RHYTHM IN THE 70'S. PT STATES SHE THINKS HER LOOSE STOOLS ARE IMPROVING, ESTIMATES THAT SHE HAD 10 TODAY, "WHICH IS AN IMPROVEMENT FOR ME." PT STATES SHE IS FEELING "A LITTLE NAUSEOUS" BUT SHE WOULD LIKE TO TRY TO EAT SOME JELLO, WHICH SHE TOLERATED WELL. CALL LIGHT WITHIN REACH, WILL CONTINUE TO MONITOR. DRESSINGS TO DRAIN SITES ON ABD AND BUTTOCK ARE REMOVED WITH DAY SHIFT NURSE DURING BED HUDDLE, NO DRAINAGE OR HEMATOMA NOTED TO SITES. 0035: PT C/O PAIN IN HER RIGHT AND CENTER ABD, RATING 7/10. TREATED WITH PRN IV PAIN MEDICATION, PROVIDES RELIEF AND PT IS ABLE TO SLEEP. SEE EMAR.
[2020-11-27 04:32] LABS: BASOPHILS ABSOLUTE AUTO 0.08 K/mm3 (0.00-0.23); BASOPHILS PERCENT AUTO 0 % (0-2); EOSINOPHILS ABSOLUTE AUTO 0.23 K/mm3 (0.00-0.68); EOSINOPHILS PERCENT AUTO 1 % (0-6); Hematocrit 28.8 % (33.0-51.0); Hemoglobin 9.9 g/dL (11.5-16.0); IMMATURE GRAN ABSOLUTE AUTO 0.18 K/mm3 (0.00-0.10); IMMATURE GRAN PERCENT AUTO 1 % (0-1); LYMPHOCYTES ABSOLUTE AUTO 0.99 K/mm3 (0.84-5.20); LYMPHOCYTES PERCENT AUTO 5 % (21-46); MONOCYTES ABSOLUTE AUTO 1.33 K/mm3 (0.16-1.47); MONOCYTES PERCENT AUTO 6 % (4-13); Mean Corpuscular HGB 32.4 pg (26.0-34.0); Mean Corpuscular HGB Conc 34.4 g/dL (31.5-36.5); Mean Corpuscular Volume 94 fL (80-100); Mean Platelet Volume 9.3 fL (9.1-12.4); NEUTROPHILS ABSOLUTE AUTO 17.99 K/mm3 (1.96-9.15); NEUTROPHILS PERCENT AUTO 86 % (41-73); Platelet Count 524 K/mm3 (150-400); RDW Coefficient Variation 13.7 % (11.7-14.2); RDW Standard Deviation 47.2 fL (35.1-46.3); Red Blood Cell Count 3.06 M/mm3 (3.80-5.20)
[2020-11-27 04:49] LABS: Calcium, Blood 8.3 mg/dL (8.5-10.1); Creatinine, Blood 2.41 mg/dL (0.40-1.00); Potassium, Blood 3.9 mmol/L (3.5-5.5)
--- NOTE | 2020-11-27 06:23 | NUR ---
SHIFT SUMMARY PT REMAINED STABLE THROUGH OUT THE NIGHT, NO ACUTE CHANGES. VSS. PAIN IN RIGHT AND CENTRAL ABD, PT DESCRIBED "BURNING", WAS TREATED WELL WITH IV PAIN MEDICATION, SEE EMAR. PT WITH POWERGLIDE IN LESA, DRAWS BLOOD WELL, FLUSHED AND CAPS CHANGED. PT SATING ABOVE 92% ON 1 LPM O2. TWO EPISODES OF FECAL URGENCY, BOTH STOOLS WERE SCANT STOOL AND WATERY. TELEMETRY CONTINUED TO MONITOR PT AT SINUS RHYTHM, BBB, IN THE 70'S. WILL CONTINUE TO MONITOR.
[2020-11-27 09:22] LABS: Albumin, Blood 1.9 g/dL (3.4-5.0); Prealbumin, Blood 6.2 mg/dL (20.0-40.0)
--- NOTE | 2020-11-27 17:06 | NUR ---
11/27/20- per chart review with Dr. Garay, pt is still not medically stable to d/c and will most likely stay through the weekend. Dr. Araiza has consulted on pt and she is still experiencing abdominal discomfort and some diarrhea. Pt will still need to continue IV abx therapy for abscess in her abdomen.-silvina
--- NOTE | 2020-11-27 17:29 | NUR ---
SHIFT SUMMARY; ASSUMED CARE AT 0700, REPORT FROM CONCHA HENDERSON. A/A/OX4 DURING SHIFT. SEVERAL EPISODES OF WATERY DIARRHEA THROUGHOUT SHIFT. IMMODIUM PER EMAR. 24 HOUR URINE STARTED @1600. REPOSITIONS SELF NEEDED, UP TO BEDSIDE COMMODE NEEDED. SHOWER TODAY AND LINEN CHANGE. CLINIMIX INFUSING AT 75ML/HR TO LESA POWER GLIDE. HR INCREASED IN AFTERNOON TO 100-[address] SINUS [address] CORTEZ, ORDERS FOR LOPRESSOR IV PUSH. MEDICATED PER EMAR. WILL CONINUE TO MONITOR.
--- NOTE | 2020-11-27 21:29 | NUR ---
PT IS A&O X4, AWAKE IN THE BED. SHE IS CONNECTED TO TELEMETRY SINUS RHYTHM WITH PAC'S, IN THE 70'S PER MAKE UP WORKER REPORT. SHE IS SATING ABOVE 90% ON 1LPM O2 VIA NC. POWERGLIDE IN LESA IS INFUSING. PT IS ABLE TO VOID AT BEDSIDE COMMODE, AND WILL AMBULATE TO BATHROOM SOMETIMES. COLLECTING URINE FOR 24HR URINE. 1929: PT C/O NAUSEA. GIVEN ZOFRAN IV. 2029: PT VOMITED 2 FLUID OZ OF YELLOW/GREEN FLUID, APPEARS TO BE BILE. PT REPORTS FEELING NAUSEOUS DURING DAY SHIFT, AND HASN'T BEEN ABLE TO TOLERATE A SOLID DIET, INCLUDING JELLO. SHE HAS BEEN SIPPING ON WATER. 2134: PT CONTINUES TO C/O NAUSEA, UNABLE TO SWALLOW PO MEDICATION DUE TO CONCERN SHE WILL VOMIT AGAIN. CONCHA MOSS PHONE CALL TO HOSPITALIST JUDI LWASON, FOR ORDERS FOR ADDITIONAL ANTI-EMETIC.
[2020-11-28 05:57] LABS: Bun/Creatinine Ratio 12.8 (12.0-20.0); Calcium, Blood 8.3 mg/dL (8.5-10.1); Creatinine, Blood 2.35 mg/dL (0.40-1.00); Phosphorus, Blood 3.8 mg/dL (2.5-4.9); Potassium, Blood 3.8 mmol/L (3.5-5.5)
--- NOTE | 2020-11-28 05:58 | NUR ---
SHIFT SUMMARY PT C/O NAUSEA AND HAD TWO EPISODES OF EMESIS THIS SHIFT. YELLOW/GREEN BILE. PT STATED SHE HAD NO APPETITE. PT RECEIVED TWO PRN ANTI-EMETICS, AND WAS NOT ABLE TO SWALLOW HER PO MEDICATION, SHE VOMITED THE PILLS AFTER MED ADMINISTRATION. PT CONTINUED TO SAT ABOVE 90% ON 1LPM OXYGEN. NO ACUTE CHANGES. VSS. WILL CONTINUE TO MONITOR.
[2020-11-28 13:54] LABS: International Normalized Ratio 1.12
[2020-11-28 17:12] LABS: Creatinine Urine 36.3 mg/dL (27.00-270.00)
[2020-11-28 17:16] LABS: Protein, Urine Quantitative 41.2 mg/dL (0.0-11.9)
--- NOTE | 2020-11-28 18:16 | NUR ---
SHIFT SUMMARY REMAINED A/A/OX4 DURING SHIFT. UP TO BEDSIDE COMMODE INDEPENDANTLY. 1L 02 VIA NC TO MAINTAIN SATS OF 94-96%. CLINIMIX INFUSING AT 75ML/HR. MEDICATED PER EMAR FOR PAIN. CONTINUES TO HAVE WATERY GREEN TINTED STOOL, SEVERAL EPISODES TODAY. PALOMO POWER GLIDE IN PLACE. HEPARIN STARTED PER ORDERS AT 15MG/KG/HR. WILL CONTINUE TO MONITOR AND TREAT UNTIL CHANGE OF SHIFT.
--- NOTE | 2020-11-29 05:52 | NUR ---
SHIFT SUMMARY PT STATES SHE HAS ONLY HAD ONE WATERY STOOL THIS SHIFT. PT HAD ONE EPISODE OF NAUSEA AND ABD PAIN EARLY IN THE SHIFT, WHICH WAS TREATED WITH PRN MEDICATION (SEE EMAR). PT SATED ABOVE 90% ON PRN 1L VIA NC AND RA. DRAIN SITES ON RIGHT BUTTOCK AND ABD HAVE BEEN REMOVED, KE AND NO DRAINAGE NOTED. PT HAS TWO POWERGLIDES IN BILATERAL UPPER ARMS. PT DENIES CHEST PAIN AND SOB. HEPARIN INFUSING IN [place], PER PHARMACY TITRATION. VSS. CONNECTED TO TELEMETRY, SINUS TACH WITH PAC'S PER AUDIO/VISUAL MANAGER REPORT. WILL CONTINUE TO MONITOR.
[2020-11-29 06:42] LABS: BASOPHILS ABSOLUTE AUTO 0.09 K/mm3 (0.00-0.23); BASOPHILS PERCENT AUTO 1 % (0-2); EOSINOPHILS ABSOLUTE AUTO 0.32 K/mm3 (0.00-0.68); EOSINOPHILS PERCENT AUTO 2 % (0-6); Hematocrit 28.3 % (33.0-51.0); Hemoglobin 9.5 g/dL (11.5-16.0); IMMATURE GRAN ABSOLUTE AUTO 0.16 K/mm3 (0.00-0.10); IMMATURE GRAN PERCENT AUTO 1 % (0-1); LYMPHOCYTES ABSOLUTE AUTO 1.39 K/mm3 (0.84-5.20); LYMPHOCYTES PERCENT AUTO 8 % (21-46); MONOCYTES ABSOLUTE AUTO 1.55 K/mm3 (0.16-1.47); MONOCYTES PERCENT AUTO 9 % (4-13); Mean Corpuscular HGB 31.5 pg (26.0-34.0); Mean Corpuscular HGB Conc 33.6 g/dL (31.5-36.5); Mean Corpuscular Volume 94 fL (80-100); Mean Platelet Volume 9.5 fL (9.1-12.4); NEUTROPHILS ABSOLUTE AUTO 13.35 K/mm3 (1.96-9.15); NEUTROPHILS PERCENT AUTO 79 % (41-73); Platelet Count 540 K/mm3 (150-400); RDW Coefficient Variation 13.8 % (11.7-14.2); RDW Standard Deviation 47.5 fL (35.1-46.3); Red Blood Cell Count 3.02 M/mm3 (3.80-5.20); White Blood Cell Count 16.86 K/mm3 (4.00-11.30)
[2020-11-29 06:58] LABS: Bun/Creatinine Ratio 14.2 (12.0-20.0); Calcium, Blood 8.3 mg/dL (8.5-10.1); Creatinine, Blood 2.12 mg/dL (0.40-1.00); Phosphorus, Blood 3.8 mg/dL (2.5-4.9)
--- NOTE | 2020-11-29 17:40 | NUR ---
SHIFT SUMMARY; ASSUMED CARE AT 0700, REPORT FROM CONCHA HENDERSON. A/A/OX4 DURING SHIFT. ABD SOFT AND DISTENDED. CONTINUED INTERMITANT PAIN MEDICATED PER EMAR. NAUSEA DURING SHIFT, DECLINES PO FOOD. CLINIMIX INFUSING AT 75ML/HR. HEPARIN INFUSING AT 19UNITS/KG/HR. UP TO BEDSIDE COMMODE INDEPENDANTLY DURING SHIFT APPROX 7X WITH WATERY FOUL SMELLING STOOL. DECLINED 10AM DOSE OF IMMODIUM TODAY DUE TO BM DECREASING DURING THE NIGHT. DISCUSSED BY DR. RM WITH PT NEED TO TAKE Q4 WHILE AWAKE. PT AGREES TO PLAN. REPOSITIONS SELF IN BED NEEDED. HR SINUS RHYTHM DURING SHIFT WITH VSS. WILL CONTINUE TO MONITOR AND TREAT UNTIL CHANGE OF SHIFT.
--- NOTE | 2020-11-29 22:50 | NUR ---
INCREASE TO HEPARIN DOSE AT 21:52 TO 20 UNITS/KG; VERIFIED WITH CONCHA GILES. INFUSING INTO [place] POWERGLIDE.
[2020-11-30 04:12] LABS: BASOPHILS ABSOLUTE AUTO 0.07 K/mm3 (0.00-0.23); BASOPHILS PERCENT AUTO 1 % (0-2); EOSINOPHILS ABSOLUTE AUTO 0.35 K/mm3 (0.00-0.68); EOSINOPHILS PERCENT AUTO 2 % (0-6); Hemoglobin 9.5 g/dL (11.5-16.0); IMMATURE GRAN ABSOLUTE AUTO 0.15 K/mm3 (0.00-0.10); IMMATURE GRAN PERCENT AUTO 1 % (0-1); LYMPHOCYTES ABSOLUTE AUTO 1.55 K/mm3 (0.84-5.20); LYMPHOCYTES PERCENT AUTO 11 % (21-46); MONOCYTES ABSOLUTE AUTO 1.29 K/mm3 (0.16-1.47); MONOCYTES PERCENT AUTO 9 % (4-13); Mean Corpuscular HGB Conc 33.9 g/dL (31.5-36.5); Mean Corpuscular Volume 94 fL (80-100); Mean Platelet Volume 9.5 fL (9.1-12.4); NEUTROPHILS ABSOLUTE AUTO 10.94 K/mm3 (1.96-9.15); NEUTROPHILS PERCENT AUTO 76 % (41-73); Platelet Count 540 K/mm3 (150-400); RDW Coefficient Variation 13.6 % (11.7-14.2); RDW Standard Deviation 47.2 fL (35.1-46.3); Red Blood Cell Count 2.97 M/mm3 (3.80-5.20); White Blood Cell Count 14.35 K/mm3 (4.00-11.30)
[2020-11-30 04:27] LABS: Calcium, Blood 7.9 mg/dL (8.5-10.1); Creatinine, Blood 1.94 mg/dL (0.40-1.00); Phosphorus, Blood 3.8 mg/dL (2.5-4.9); Potassium, Blood 4.1 mmol/L (3.5-5.5)
--- NOTE | 2020-11-30 07:31 | NUR ---
SHIFT SUMMARY VSS. NO ACUTE CHANGES. CALL LIGHT AT BEDSIDE. GAVE REPORT TO CONCHA SILVERMAN.
--- NOTE | 2020-11-30 14:03 | NUR ---
11/30/20- PER CHART REVIEW WITH DR. ENCARNACION, PT NOT MEDICALLY STABLE FOR D/C AT THIS TIME. SHE IS STILL NEEDING IV ANTIBIOTICS. HE STATES THAT PT COULD POTENTIALLY D/C AT THE END OF THE WEEK AND SHE MAY NEED TO GO TO SNF AT D/C BUT WILL ASSESS FOR THIS CLOSER TO D/C. -ALESSANDRA
[2020-11-30 15:08] LABS: Q FEVER PHASE I Negative (Neg:<1:16); Q FEVER PHASE II Negative (Neg:<1:16)
--- NOTE | 2020-11-30 18:03 | NUR ---
PT HAD 3 LOOSE BM'S; HEPARIN DRIP AT THERAPEUTIC RATE PER AUG/LAB RESULTS/PHARMACY; PT ABLE TO EAT A SERVING OF ORANGE SHERBET AND KEEP IT DOWN WITH MINIMAL NAUSEA; PT REPORTS BEING VERY PROUD OF EATING ANYTHING AT ALL; RX ADMINISTERED PER AUG; SBP IN 150'S WHEN IN PAIN; WHOLE PILL PASSED IN BM--PILLS MAY NEED TO BE CRUSHED TO MAXIMIZE ABSORPTION; O2 SATURATIONS ADEQUATE AT 1LNC; PT DENIES ADDITIONAL CONCERNS AT THIS TIME
[2020-12-01 04:06] LABS: BASOPHILS ABSOLUTE AUTO 0.08 K/mm3 (0.00-0.23); BASOPHILS PERCENT AUTO 1 % (0-2); EOSINOPHILS ABSOLUTE AUTO 0.32 K/mm3 (0.00-0.68); EOSINOPHILS PERCENT AUTO 3 % (0-6); Hemoglobin 9.8 g/dL (11.5-16.0); IMMATURE GRAN PERCENT AUTO 1 % (0-1); LYMPHOCYTES ABSOLUTE AUTO 1.47 K/mm3 (0.84-5.20); LYMPHOCYTES PERCENT AUTO 12 % (21-46); MONOCYTES ABSOLUTE AUTO 1.22 K/mm3 (0.16-1.47); MONOCYTES PERCENT AUTO 10 % (4-13); Mean Corpuscular HGB 31.8 pg (26.0-34.0); Mean Corpuscular HGB Conc 33.8 g/dL (31.5-36.5); Mean Corpuscular Volume 94 fL (80-100); Mean Platelet Volume 9.4 fL (9.1-12.4); NEUTROPHILS ABSOLUTE AUTO 9.25 K/mm3 (1.96-9.15); NEUTROPHILS PERCENT AUTO 74 % (41-73); Platelet Count 508 K/mm3 (150-400); RDW Coefficient Variation 13.6 % (11.7-14.2); RDW Standard Deviation 47.3 fL (35.1-46.3); Red Blood Cell Count 3.08 M/mm3 (3.80-5.20); White Blood Cell Count 12.44 K/mm3 (4.00-11.30)
[2020-12-01 04:21] LABS: Bun/Creatinine Ratio 17.9 (12.0-20.0); Calcium, Blood 8.6 mg/dL (8.5-10.1); Creatinine, Blood 1.9 mg/dL (0.40-1.00); Potassium, Blood 4.3 mmol/L (3.5-5.5)
--- NOTE | 2020-12-01 04:34 | NUR ---
SHIFT SUMMARY PATIENT IS ALERT AND ORIENTED X4. INDEPENDENT TO THE BSC. MEDICATED FOR PAIN IN RIGHT ABD, SEE EMAR. 1 SMALL LOOSE BM THROUGHOUT THE NIGHT. 02 SATS 94% ON 1L 02 VIA NC. VSS, NO ACUTE CHANGES. PT SLEPT MOST THE NIGHT. CALL LIGHT IN REACH.
--- NOTE | 2020-12-01 14:38 | NUR ---
12/01/20- per chart review with Dr. Bangura, pt could potentially discharge at the end of the week as long as she keeps improving with antibiotics. Pt has stated that she does not want to be on long-term antibiotics. Prior to d/c pt will need to show that she is able to intake enough calories orally and also be able to take her antibiotics orally. -silvina
--- NOTE | 2020-12-01 18:09 | NUR ---
SHIFT SUMMARY PT HAS BEEN INDEPENDENT IN THE ROOM TODAY. PO INTAKE IS ENCOURAGED, HOWEVER NOT MUCH IMPROVEMENT. PT STILL REQUIRING CLINIMIX AND FAT EMULSION AND IV ANTIBIOTICS. PT HAS ABD PAIN THAT IS CONSTANT, MEDICATED PER EMAR. PT HAS BEEN SLIGHTLY HYPERTENSIVE TODAY, DR. ENCARNACION HAS BEEN MADE AWARE AND WILL WATCH THE TREND AND ADJUST MEDICATION ACCORDINGLY. OTHERWISE PT VS HAVE BEEN STABLE. PT IS RESTING IN BED AT THIS TIME
[2020-12-02 11:09] LABS: B. HENSELAE IGG Negative titer (Neg:<1:320); B. HENSELAE IGM Negative titer (Neg:<1:100); B. QUINTANA IGG Negative titer (Neg:<1:320); B. QUINTANA IGM Negative titer (Neg:<1:100)
--- NOTE | 2020-12-02 12:37 | NUR ---
12/02/20- per chart review with Dr. Bangura, pt's health has decreased. CT was done of abdomen and there is concern that pt is forming another abscess around her kidney. Pt may need to have surgery. There is no plan for d/c at this time. -silvina
--- NOTE | 2020-12-02 17:56 | NUR ---
SHIFT SUMMARY NO ACUTE EVENTS THIS SHIFT, VSS. PATIENT ALERT AND ORIENTED, ON ROOM AIR TOLERATING WELL. PATIENT ABLE TO AMBULATE INDEPDENENTLY TO BEDSIDE COMMODE. PATIENT HAD INTERMITTENT NAUSEA, ONE EPISODE OF EMESIS. MEDICATED PER EMAR FOR NAUSEA AND PAIN. PATIENT COMPLAINED OF ABDOMINAL PAIN, ICE/HEAT OFFERED. PATIENT REPOSITIONED SELF THROUGHOUT SHIFT. PATIENT WAS ABLE TO TOLERATE SOME ICE CHIPS DURING SHIFT.
[2020-12-03 02:20] LABS: Source, Urine Catheter
[2020-12-03 02:22] LABS: Bilirubin, Urine Neg (Neg); Blood, Urine Neg (Neg); Glucose Qualitative, Urine Neg (Neg); Ketones, Urine Neg (Neg); Leukocyte Esterase, Urine 1+ (Neg); Nitrite, Urine Neg (Neg); Protein, Urine Neg (Neg); Specific Gravity, Urine 1.015 (1.003-1.022); Urobilinogen, Urine NORM (Normal)
[2020-12-03 02:26] LABS: Appearance, Urine Clear (Clear); Color, Urine Yellow (P-Yellow)
[2020-12-03 02:39] LABS: Bacteria Rare /hpf; Red Blood Cells, Urine Not Seen /hpf (0-2); Squamous Epithelial Cells Few /hpf (Few); White Blood Cells, Urine 0-2 /hpf (0-5)
[2020-12-03 03:47] LABS: BASOPHILS ABSOLUTE AUTO 0.09 K/mm3 (0.00-0.23); BASOPHILS PERCENT AUTO 1 % (0-2); EOSINOPHILS PERCENT AUTO 2 % (0-6); Hematocrit 31.6 % (33.0-51.0); Hemoglobin 10.7 g/dL (11.5-16.0); IMMATURE GRAN ABSOLUTE AUTO 0.09 K/mm3 (0.00-0.10); IMMATURE GRAN PERCENT AUTO 1 % (0-1); LYMPHOCYTES ABSOLUTE AUTO 1.57 K/mm3 (0.84-5.20); LYMPHOCYTES PERCENT AUTO 15 % (21-46); MONOCYTES ABSOLUTE AUTO 0.78 K/mm3 (0.16-1.47); MONOCYTES PERCENT AUTO 8 % (4-13); Mean Corpuscular HGB 31.5 pg (26.0-34.0); Mean Corpuscular HGB Conc 33.9 g/dL (31.5-36.5); Mean Corpuscular Volume 93 fL (80-100); Mean Platelet Volume 9.4 fL (9.1-12.4); NEUTROPHILS ABSOLUTE AUTO 7.51 K/mm3 (1.96-9.15); NEUTROPHILS PERCENT AUTO 73 % (41-73); Platelet Count 431 K/mm3 (150-400); RDW Coefficient Variation 13.2 % (11.7-14.2); RDW Standard Deviation 45.1 fL (35.1-46.3); White Blood Cell Count 10.24 K/mm3 (4.00-11.30)
[2020-12-03 04:06] LABS: Albumin, Blood 2.1 g/dL (3.4-5.0); Albumin/Globulin Ratio 0.5 (0.8-1.8); Bilirubin, Total 0.2 mg/dL (0.1-1.0); Bun/Creatinine Ratio 18.6 (12.0-20.0); Calcium, Blood 8.7 mg/dL (8.5-10.1); Creatinine, Blood 1.67 mg/dL (0.40-1.00); Globulin, Blood 4.5 g/dL (2.2-4.0); Total Protein, Blood 6.6 g/dL (6.4-8.2)
--- NOTE | 2020-12-03 05:45 | NUR ---
SHIFT SUMMARY PT A&OX4. SP02>90% ON RA. TELEMETRY READS SR W/ BBB, HR 50'S-60'S. PT UP TO BSC MULTIPLE TIMES THIS SHIFT TO HAVE DIARRHEA AND TO VOID. PT C/O OF 01/02 PAIN. PT HAD ELEVATED BP AND STATES DUILADID NO LONGER WORKING. CALL PLACED TO MD CR. MD CR W/ ORDERS FOR FENTANYL, SEE EMAR. PT NAUSEATED AND VOMITING X2 THIS SHIFT. PT SLEPT OFF AND ON. MULTIVITAMIN, LIPIDS, AND ABX INFUSED THIS SHIFT. CALL LIGHT IN REACH. WILL GIVE REPORT TO ONCOMING NURSE.
--- NOTE | 2020-12-03 11:40 | NUR ---
REPORT CALLED TO JANIE KERN ON SURGICAL FLOOR. PT A/O X3 ANSWERS QUESTIONS APPROPRIATELY WITH A VERY FLAT AFFECT. PT WITH CLINIMIX RUNNING TO [place] POWERGLIDE AND NS TKO TO L[place]A POWERGLIDE. PT HAS BEEN UP FOR SHOWER TODAY WITH AIDES. PT WITH POOR ORAL INTAKE
--- NOTE | 2020-12-03 12:02 | NUR ---
PT ARRIVED TO UNIT IN BED. PT CURRENTLY AA0X4, REPORTS PAIN AT 7/10, PLAN TO MEDICATE PER EMAR. PT AMBULATES WELL TO BATHROOM AT THIS TIME INDEPENDANTLY, NO WEAKNESS WITH AMBULATION. SHE DENIES SOB WITH EXERTION. CURRENTLY TOLERATING PO WATER WELL, DENIES NAUSEA. AFFECT FLAT BUT PT RESPONDS APPROPRIATLY.
--- NOTE | 2020-12-03 15:07 | NUR ---
12/03/20- per chart review with Dr. Bangura, pt has had IV antibiotics d/c. They will do cultures to make sure she is doing well. Pt is expected to stay through the weekend. Dr. Bangura has stated that pt is more depressed since she has been hospitalized. -silvina
--- NOTE | 2020-12-03 16:22 | NUR ---
SHIFT SUMMARY NO ACUTE CHANGES SINCE ARRIVAL TO UNIT. SHE HAS WALKED WITH THERAPY AND REPORTS FEELING EXHAUSTED AFTER. SHE REQUESTED THIS RN ALLOW HER TO SLEEP UNDISTURBED FOR A PERIOD OF TIME. SHE IS CURRENTLY STILL SLEEPING WITH HER CLINIMIX INFUSING. THE PATIENT REPORTS PAIN MANAGED WITH 50MCG OF FENTANYL. NAUSEA ONLY WHEN SMELLING CERTAIN TYPES OF FOOD. DENIES OTHERWISE. PT AA0X4, AFFECT CONTINUES TO BE FLAT DURING SHIFT. SHE WILL SMILE AT TIMES.
--- NOTE | 2020-12-04 05:01 | NUR ---
SHIFT SUMMARY: NO SIGNIFICANT CHANGES THIS SHIFT. ABD MIDLY DISTENDED AND SOFT. HYPERACTIVE BT THROUGHOUT. PT REPORTS PASSING FLATUS AND HAVING 4 EPISODES OF DIARRHEA THIS SHIFT. STOOL GREEN IN COLOR. PT VOIDING WELL. INDEPENDENT IN ROOM. PAIN HAS BEEN TOLERABLE THROUGHOUT SHIFT WITHOUT NEED FOR PAIN MEDICATION. CLINIMIX INFUSING PER ORDERS. FLAT AFFECT, RESPONDING APPROPRIATLY TO ALL QUESTIONS. PLEASANT AND COOPERATIVE WITH CARE. PT HAS BEEN RESTING MOST OF SHIFT.
[2020-12-04 05:28] LABS: BASOPHILS ABSOLUTE AUTO 0.09 K/mm3 (0.00-0.23); BASOPHILS PERCENT AUTO 1 % (0-2); EOSINOPHILS ABSOLUTE AUTO 0.35 K/mm3 (0.00-0.68); EOSINOPHILS PERCENT AUTO 3 % (0-6); Hematocrit 31.5 % (33.0-51.0); Hemoglobin 10.4 g/dL (11.5-16.0); Mean Corpuscular HGB 30.5 pg (26.0-34.0); Mean Corpuscular Volume 92 fL (80-100); Mean Platelet Volume 9.7 fL (9.1-12.4); Platelet Count 399 K/mm3 (150-400); RDW Coefficient Variation 13.3 % (11.7-14.2); Red Blood Cell Count 3.41 M/mm3 (3.80-5.20); White Blood Cell Count 10.45 K/mm3 (4.00-11.30)
[2020-12-04 05:37] LABS: IMMATURE GRAN ABSOLUTE AUTO 0.08 K/mm3 (0.00-0.10); IMMATURE GRAN PERCENT AUTO 1 % (0-1); LYMPHOCYTES ABSOLUTE AUTO 2.48 K/mm3 (0.84-5.20); LYMPHOCYTES PERCENT AUTO 24 % (21-46); MONOCYTES ABSOLUTE AUTO 1.04 K/mm3 (0.16-1.47); MONOCYTES PERCENT AUTO 10 % (4-13); NEUTROPHILS ABSOLUTE AUTO 6.41 K/mm3 (1.96-9.15); NEUTROPHILS PERCENT AUTO 61 % (41-73)
--- NOTE | 2020-12-04 08:01 | NUR ---
pt sleeping does not wake to verbal stimuli will let her sleep
--- NOTE | 2020-12-04 08:30 | NUR ---
PT AWAKE EATING BREAKFAST MEDS GIVEN PT STATED PAIN IS 2/10 WINDOWS IN ROOM OPENED PT HAS FLAT AFFECT PT DENIES NAUSEA AT THIS TIME
--- NOTE | 2020-12-04 10:03 | NUR ---
PT AMB IN HALLWAY WITH PHYSICAL THERAPY WITH WALKER
--- NOTE | 2020-12-04 12:05 | NUR ---
pt oob to bathroom eating lunch offered pain meds pt declined
--- NOTE | 2020-12-04 12:19 | NUR ---
12/04/20- per chart review with Dr. Garay, pt will be staying through the weekend. They will watch to make sure she does not develop a fever now that she is off the antibiotics. Per chart, pt is passing gas, having diarrhea and is able to void. Pt does still have abscesses on abdomen and there is question that they may or may not be sterile now that she has complete antibiotics. Plan is to potentially discharge on Monday. -silvina
--- NOTE | 2020-12-04 14:25 | NUR ---
PT HAVING IN ABD PAIN STATED IT COMES AND GOES SHARP PAIN 03/05
--- NOTE | 2020-12-04 17:07 | NUR ---
ASSUMED CARE AT THIS TIME. REPORT FROM SUSHANT KERN.
--- NOTE | 2020-12-05 06:36 | NUR ---
SHIFT SUMMARY: PT APPEARS TO BE RESTING MOST OF SHIFT. PT DID COMPLAIN OF SEVERE 9/10 PAIN ONCE. MEDICATED WITH 50MCG OF FENTANYL PER EMAR. PT MEDICATED FOR PAIN TWICE THIS SHIFT. DENIES N/V. MINIMAL PO INTAKE. PT ABLE TO DRINK FULL DRINK OF QUESTRAN. ORDER CHANGED FROM TID TO QID PER DR. MARTINEZ. CLINIMIX AND LIPIDS INFUSING PER EMAR.
[2020-12-05 11:15] LABS: BASOPHILS PERCENT AUTO 1 % (0-2); EOSINOPHILS ABSOLUTE AUTO 0.33 K/mm3 (0.00-0.68); EOSINOPHILS PERCENT AUTO 3 % (0-6); Hematocrit 31.8 % (33.0-51.0); Hemoglobin 10.7 g/dL (11.5-16.0); IMMATURE GRAN ABSOLUTE AUTO 0.06 K/mm3 (0.00-0.10); IMMATURE GRAN PERCENT AUTO 1 % (0-1); LYMPHOCYTES ABSOLUTE AUTO 1.84 K/mm3 (0.84-5.20); LYMPHOCYTES PERCENT AUTO 16 % (21-46); MONOCYTES ABSOLUTE AUTO 0.95 K/mm3 (0.16-1.47); MONOCYTES PERCENT AUTO 9 % (4-13); Mean Corpuscular HGB 31.2 pg (26.0-34.0); Mean Corpuscular HGB Conc 33.6 g/dL (31.5-36.5); Mean Corpuscular Volume 93 fL (80-100); Mean Platelet Volume 9.9 fL (9.1-12.4); NEUTROPHILS ABSOLUTE AUTO 7.93 K/mm3 (1.96-9.15); NEUTROPHILS PERCENT AUTO 71 % (41-73); Platelet Count 355 K/mm3 (150-400); RDW Coefficient Variation 13.2 % (11.7-14.2); RDW Standard Deviation 43.9 fL (35.1-46.3); Red Blood Cell Count 3.43 M/mm3 (3.80-5.20); White Blood Cell Count 11.21 K/mm3 (4.00-11.30)
[2020-12-05 11:24] LABS: Bun/Creatinine Ratio 17.3 (12.0-20.0); Calcium, Blood 8.9 mg/dL (8.5-10.1); Creatinine, Blood 1.68 mg/dL (0.40-1.00); Potassium, Blood 4.4 mmol/L (3.5-5.5)
--- NOTE | 2020-12-05 19:32 | NUR ---
SHIFT SUMMARY NO ACUTE CHANGES THIS SHIFT. PT C/O NAUSEA X2 THIS SHIFT AND PAIN X1 THIS SHIFT. TREATED PER EMR WITH SUCCESS. CLINIMIX AND LIPIDS INFUSING PER EMR ORDERS. VSS. REPORT GIVEN TO ONCOMING RN.
--- NOTE | 2020-12-06 03:41 | NUR ---
SHIFT SUMMARY NO ACUTE CHANGES OVERNIGHT. PT REPORTS NAUSEA AT THE BEGINNING OF SHIFT. VOMITED X1 W/ 350ML AFTER TAKING NIGHT MEDICATION. PT ALSO C/O OF PAIN, MEDICATED X2 T/O SHIFT W/ FENTANYL. CLINIMX AND LIPIDS STILL INFUSING IN HER [place] IV. VSS BUT HAS SOME FEVER THIS MORNING. WILL CONTINUE TO MONITOR VS. CALL LIGHT WITHIN REACH. WILL PROVIDE REPORT TO ONCOMING NURSE.
[2020-12-06 08:39] LABS: BASOPHILS PERCENT AUTO 1 % (0-2); EOSINOPHILS PERCENT AUTO 3 % (0-6); Hematocrit 31.3 % (33.0-51.0); Hemoglobin 10.5 g/dL (11.5-16.0); IMMATURE GRAN ABSOLUTE AUTO 0.06 K/mm3 (0.00-0.10); IMMATURE GRAN PERCENT AUTO 1 % (0-1); LYMPHOCYTES ABSOLUTE AUTO 1.86 K/mm3 (0.84-5.20); LYMPHOCYTES PERCENT AUTO 16 % (21-46); MONOCYTES ABSOLUTE AUTO 0.95 K/mm3 (0.16-1.47); MONOCYTES PERCENT AUTO 8 % (4-13); Mean Corpuscular HGB 31.1 pg (26.0-34.0); Mean Corpuscular HGB Conc 33.5 g/dL (31.5-36.5); Mean Corpuscular Volume 93 fL (80-100); Mean Platelet Volume 9.9 fL (9.1-12.4); NEUTROPHILS ABSOLUTE AUTO 8.17 K/mm3 (1.96-9.15); NEUTROPHILS PERCENT AUTO 71 % (41-73); Platelet Count 307 K/mm3 (150-400); RDW Coefficient Variation 13.1 % (11.7-14.2); RDW Standard Deviation 44.2 fL (35.1-46.3); Red Blood Cell Count 3.38 M/mm3 (3.80-5.20); White Blood Cell Count 11.44 K/mm3 (4.00-11.30)
[2020-12-06 08:57] LABS: Bun/Creatinine Ratio 15.3 (12.0-20.0); Calcium, Blood 8.7 mg/dL (8.5-10.1); Creatinine, Blood 1.63 mg/dL (0.40-1.00); Potassium, Blood 4.3 mmol/L (3.5-5.5)
--- NOTE | 2020-12-06 10:29 | NUR ---
DR AMOS IN TO SEE PT.
--- NOTE | 2020-12-06 11:46 | NUR ---
PT AMBULATING IN [place].
--- NOTE | 2020-12-06 13:04 | NUR ---
ORDER 2 SETS BLOOD CULTURES IF PT DEVELOPS FEVER.
--- NOTE | 2020-12-06 13:23 | NUR ---
PT TO CT
--- NOTE | 2020-12-06 16:56 | NUR ---
SUMMARY PT INDEPENDENT. AMBULATED IN [place] DURING SHIFT. HAD SMALL EPISODE OF EMESIS THIS AM. MEDICATED TWICE DURING SHIFT PER ORDERS FOR N/V. PT HAD CT OF ABDOMEN THIS AFTERNOON. REC'D 1L NS BOLUS PRIOR TO AND 1L BOLUS AFTER CT PER ORDERS. NOW RESTING W/ EYES CLOSED. CALL LIGHT IN REACH.
--- NOTE | 2020-12-07 05:56 | NUR ---
PT T-MAX 100.1; RESOLVED W/REDUCING ROOM TEMP. PT HAD NO C/O N/V, WAS MED W/FENTANYL FOR PAIN X2. PT UP INDEP IN ROOM, IS VOIDING URINE W/O DIFFICULTY. CLINIMIX CONT PER ORDERS. PT UP INDEP IN ROOM, CYN WELL. PT REP HAVING SLEPT WELL FOR MAJORITY OF NIGHT. WILL CONT TO MONITOR UNTIL REP GIVEN TO DAY RN.
[2020-12-07 08:03] LABS: BASOPHILS ABSOLUTE AUTO 0.12 K/mm3 (0.00-0.23); BASOPHILS PERCENT AUTO 1 % (0-2); EOSINOPHILS ABSOLUTE AUTO 0.49 K/mm3 (0.00-0.68); EOSINOPHILS PERCENT AUTO 5 % (0-6); Hematocrit 30.9 % (33.0-51.0); Hemoglobin 10.5 g/dL (11.5-16.0); IMMATURE GRAN ABSOLUTE AUTO 0.05 K/mm3 (0.00-0.10); IMMATURE GRAN PERCENT AUTO 1 % (0-1); LYMPHOCYTES ABSOLUTE AUTO 1.38 K/mm3 (0.84-5.20); LYMPHOCYTES PERCENT AUTO 14 % (21-46); MONOCYTES ABSOLUTE AUTO 0.86 K/mm3 (0.16-1.47); MONOCYTES PERCENT AUTO 8 % (4-13); Mean Corpuscular HGB 31.7 pg (26.0-34.0); Mean Corpuscular Volume 93 fL (80-100); Mean Platelet Volume 9.8 fL (9.1-12.4); NEUTROPHILS ABSOLUTE AUTO 7.33 K/mm3 (1.96-9.15); NEUTROPHILS PERCENT AUTO 72 % (41-73); Platelet Count 308 K/mm3 (150-400); RDW Coefficient Variation 13.3 % (11.7-14.2); RDW Standard Deviation 45.1 fL (35.1-46.3); Red Blood Cell Count 3.31 M/mm3 (3.80-5.20); White Blood Cell Count 10.23 K/mm3 (4.00-11.30)
[2020-12-07 12:11] LABS: 1 HR INCUB PT 1:1NP 11.4 sec (9.1-12.0); DRVVT 49.7 sec (0.0-47.0); DRVVT CONFIRM 1.1 ratio (0.8-1.2); DRVVT MIX 40.9 sec (0.0-40.4); LUPUS REFLEX INTERPRETATION Comment: (.); PT 12.4 sec (9.1-12.0); PT 1:1NP 11.2 sec (9.1-12.0); PTT-LA 45.6 sec (0.0-51.9); THROMBIN TIME 18.3 sec (0.0-23.0)
--- NOTE | 2020-12-07 16:37 | NUR ---
12/07/20- PER DR. MARIA, PT COULD POTENTIALLY BE D/C ON MONDAY. PT STILL EXPERIENCING DIARRHEA AND HE HAS ASKED FOR A GI CONSULT BY DR. RM. PER CHART REVIEW, PT IS C/O PAIN WITH MOVEMENT AND DECLINED TO WORK WITH PT TODAY. PT NOTE FROM 12/05- NO RECOMMENDATION FOR PT SERVICES AT D/C. -ALESSANDRA
--- NOTE | 2020-12-07 17:57 | NUR ---
SHIFT SUMMARY PT HAS BEEN A/O X4, IND IN ROOM. SHE HAS CONTINUED TO HAVE PAIN AND NAUSEA AND HAS BEEN MEDICATED PRN PER ORDERS. PT ALSO HAVING DIARRHEA STILL AND CONTINUES TO HAVE DECREASED APPETITE. DISCUSSED WITH HOSPITALIST WHO WOULD LIKE TO KEEP PT ONE MORE NIGHT, POSSIBLY DISCHARGE TOMORROW. PT CLEARED BY SURGERY TODAY.
--- NOTE | 2020-12-08 07:15 | NUR ---
A/OX4. VSS ON RA. PAIN MANAGED WELL W/ FENTANYL. PT VERBALIZED SHE WANTS TO D/C TOMORROW, EDUCATED PT REGARDING THE NEED TO SWITCH TO ORAL PAIN MEDS. OXYCODONE ORDERED PER HOSPITALIST AND EFFECTIVE. ZOFRAN AND PHENERGAN GIVEN FOR N/V. PATIENT HAD 1 EMESIS IN EVENING. AMBULATED IN HALLWAY 1X. INDEPENDENT IN ROOM. USING CALL LIGHT TO MAKE NEEDS KNOWN.
--- NOTE | 2020-12-08 11:30 | NUR ---
PT MORE ALERT THIS MORNING COMPARED TO YESTERDAY. PT ABLE TO WORK WITH OT THIS MORNING, SIT ON EDGE OF BED, AND HAS BEEN WEANED DOWN TO 0.5-1L O2. PT HAD BM THIS MORNING WELL. DISCUSSED PT'S CASE WITH PHYSICIAN WHO REPORTS SHE WILL REVIEW CHART AND MEDS.
--- NOTE | 2020-12-08 12:20 | NUR ---
PT OKAY FOR DC TODAY PER [facility]
[2020-12-08] MEDS ORDERED: CHOLP PO (13:13)
[2020-12-08] MEDS ORDERED: OXAYDO5 M3 PO (13:14)
[2020-12-08] MEDS ORDERED: SOTO80 PO (13:18)
[2020-12-08] MEDS ORDERED: VISBIOME 112.51 EACH PO (13:19)
--- NOTE | 2020-12-08 14:12 | NUR ---
DR MARIA GAVE THIS RN VERBAL ORDER TO CALL IN SCRIPT FOR ZOFRAN 4MG PO Q6 X3O FOR THIS PT UPON DISCHARGE. ORDER CALLED TO [facility].
--- NOTE | 2020-12-08 14:38 | NUR ---
DISCHARGE PT A/O X4, IND IN ROOM. PT CLEARED TO DC BY SURGERY, GI, AND LUIS. POWER GLIDES X2 DC'D AT THIS TIME WNL. DC INSTRUCTIONS REVIEWED WITH PT WHO REPORTS NO QUESTIONS OR CONCERNS. SCRIPTS FAXED TO PT'S PHARMACY AND MARY KAY CALLED IN PER. LUIS PHYSICIAN. SCRIPT FOR OXYCODONE SENT WITH PT. PT CALLED FOR RIDE; WAITING FOR HIM TO PICK HER UP.
--- NOTE | 2020-12-08 14:48 | NUR ---
12/08/20- per chart review with Dr. Ray, pt is stable for d/c and will be going home today. -geniaw
--- NOTE | 2020-12-08 14:59 | NUR ---
PT DC'D AT 1445. PROVIDED WITH WHEELCHAIR RIDE OUT TO CAR. PERSONAL BELONGINGS AND DC INSTRUCTIONS SENT WITH PT.
== END 2020-12-08 14:47 | disposition home or self-care (01) | DRG 372 ==
LOC: ER 21:34 → PCU 11-17 01:35 → SURS 11-17 01:35 → PCU 11-17 20:10 → SURS 12-03 12:01
PROVIDERS: Emergency Medicine; Family Medicine; Internal Medicine; Internal Medicine Infectious Disease; Pharmacist; Student in an Organized Health Care Education/Training Program; Surgery; ADMIT Surgery
PROC: 0W9J30Z Drainage of Pelvic Cavity with Drainage Device, Percutaneous Approach (ICD-10-PCS; principal; 2020-11-17)
PROC: 0W9J30Z Drainage of Pelvic Cavity with Drainage Device, Percutaneous Approach (ICD-10-PCS; 2020-11-21)
PROC: 0D9P30Z Drainage of Rectum with Drainage Device, Percutaneous Approach (ICD-10-PCS; 2020-11-23)
DX: K35.33 Acute appendicitis with perforation, localized peritonitis, and gangrene, with abscess (principal); K56.609 Unspecified intestinal obstruction, unspecified as to partial versus complete obstruction; K61.1 Rectal abscess; J90 Pleural effusion, not elsewhere classified; K52.1 Toxic gastroenteritis and colitis; R18.8 Other ascites; J98.11 Atelectasis; N17.9 Acute kidney failure, unspecified; F17.210 Nicotine dependence, cigarettes, uncomplicated; E87.6 Hypokalemia; K52.839 Microscopic colitis, unspecified; E86.0 Dehydration; Z20.822 Contact with and (suspected) exposure to COVID-19; K59.00 Constipation, unspecified; E88.09 Other disorders of plasma-protein metabolism, not elsewhere classified; I27.20 Pulmonary hypertension, unspecified; B96.20 Unspecified Escherichia coli [E. coli] as the cause of diseases classified elsewhere; I44.7 Left bundle-branch block, unspecified; F32.9 Major depressive disorder, single episode, unspecified; T36.0X5A Adverse effect of penicillins, initial encounter; I08.1 Rheumatic disorders of both mitral and tricuspid valves; T36.8X5A Adverse effect of other systemic antibiotics, initial encounter; T36.95XA Adverse effect of unspecified systemic antibiotic, initial encounter; L50.9 Urticaria, unspecified; T50.8X5A Adverse effect of diagnostic agents, initial encounter; I48.0 Paroxysmal atrial fibrillation; Z88.8 Allergy status to other drugs, medicaments and biological substances; Z90.49 Acquired absence of other specified parts of digestive tract; Z90.722 Acquired absence of ovaries, bilateral; Z90.79 Acquired absence of other genital organ(s); Z79.82 Long term (current) use of aspirin; Z79.899 Other long term (current) drug therapy
CPT/HCPCS: 36415; 49405; 51798; 71045; 71046; 74019; 74176; 74177; 76705; 76770; 80048; 80053; 80061; 80076; 80202; 81001; 81050; 82040; 82570; 83605; 83735; 83880; 84100; 84134; 84145; 84156; 84439; 84443; 84484; 85025; 85610; 85611; 85613; 85670; 85730; 85732; 86147; 86611; 86638; 86713; 87040; 87070; 87075; 87076; 87077; 87103; 87185; 87186; 87205; 87449; 87493; 93005; 93010; 93306; 93312; 93325; 94762; 96374-59; 96375; 97110; 97116; 97162; 97530; 99284-25; A9270; C1751; J0696; J1170; J1200; J1644; J1650; J1940; J2405; J2543; J2550; J3010; J3370; J3411; J3475; J3480; J7030; J7040; J7042; J7050; J7120; Q9967; U0004

== ENCOUNTER 2021-04-15 07:00 | Day surgery (SDC) | payer OTHER ==
[~2021-04-15] VITALS: Ht 156 cm; Wt 53.6 kg
[~2021-04-15 07:00] MED LIST changes: +ASPI81CH PO; +Amitriptyline H10 MG PO; +BUDESONIDE EC3 M5 PO; +CENTRUM SILVER1 EAC2 PO; +CHOLP PO; +ELIQUIS5 M2 PO; +ORTIKOS9 M1 PO; +OXAYDO5 M3 PO; +RALOXIFENE HCL PO; +SOTO80 PO; +VISBIOME 112.51 EACH PO; +VITAMIN D310 MC4 PO
[2021-04-15] MEDS ORDERED: AMBIEN5 MG PO (07:24)
[2021-04-15] MEDS ORDERED: GABA300 PO (07:25)
--- NOTE | 2021-04-15 08:19 | NUR ---
Ambulatory in Day Surgery History, Chart, Medications and Allergies reviewed before start of procedure.Patient confirms NPO status and agrees with scheduled surgery. Patient reports completing Chlorhexadine shower X2 prior to admission to hospital.Surgical site prepped with 2% Chlorhexidine cloth wipe.
--- NOTE | 2021-04-15 10:34 | NUR ---
04/15/21 1034 CRISSYYAZAN AZUL 50ML OF CLEAR AMD YELLOW URINE NOTED TO PTS SILVA CATH DRAINAGE BAG AFTER PROCEDURE.
[2021-04-15] MEDS ORDERED: Norco 5-325 Ta1 EACH PO (15:27)
--- NOTE | 2021-04-15 16:08 | NUR ---
DISCHARGE PATIENT DISCHARGED IN STABLE CONDITION HOME. DISCHARGE INSTRUCTIONS GIVEN TO PATIENT, PATIENT VERBLALIZED UNDERSTANDING OF INTRUCTIONS. PERIPHERAL IV REMOVED, ALL BELONGINGS PACKED AND SENT WITH PATIENT, PATIENT AMBULATED INDEPENDENTLY AND TAKEN TO FRONT LOBBY BY RN
== END 2021-04-15 16:00 | disposition home or self-care (01) ==
LOC: ORSCMMR 07:00 → ORD 08:30 → ORSCMMR 08:30 → SURS 10:50 → ORSCMMR 16:00
PROVIDERS: Surgery
PROC: 0DTJ4ZZ Resection of Appendix, Percutaneous Endoscopic Approach (ICD-10-PCS; principal; 2021-04-15 08:30)
DX: K35.32 Acute appendicitis with perforation, localized peritonitis, and gangrene, without abscess (principal); I48.91 Unspecified atrial fibrillation; Z87.891 Personal history of nicotine dependence; Z79.899 Other long term (current) drug therapy
CPT/HCPCS: 88304; A9270; J0295; J1100; J1885; J2250; J2405; J2704; J3010; J7120

== ENCOUNTER → 2024-07-24 | Outpatient (CLI) | payer OTHER ==
[~2024-07-24] MED LIST changes: +AMBIEN5 MG PO; +GABA300 PO; +Norco 5-325 Ta1 EACH PO
[2024-07-24 16:58] LABS: C DIFFICILE DNA NEGATIVE (Negative)
[2024-07-29 19:08] LABS: PANCREATIC ELASTASE,FECAL >800 ug/g (>=100)
[2024-07-29 19:09] LABS: CALPROTECTIN,FECAL 13 ug/g (<=49)
[2024-08-01 20:48] LABS: OVA AND PARASITE,FECAL INTERP Negative (Negative)
== END | disposition home or self-care (01) ==
LOC: LAB SHORT 07:58 → LAB 07:58
PROVIDERS: Internal Medicine Gastroenterology
DX: K52.839 Microscopic colitis, unspecified (principal)
CPT/HCPCS: 82653; 83993; 87177; 87209; 87493